=== PATIENT | female | born 1975 | race Caucasian/White ===

== ENCOUNTER 2017-11-05 08:44 | Emergency (ER) | payer MEDICARE, MEDICAID ==
[2017-11-05] MEDS ORDERED: Ketorolac INJ* 30 MG/ML 1 ML VIAL IV PUSH ONE (09:00)
[2017-11-05] MEDS ORDERED: NS 0.9% 1000 ML* 1,000 ML IV ONE (09:00)
[2017-11-05 09:44] LABS: Hematocrit 27 % (35-47); Hemoglobin 8.7 g/dl (12.0-16.0); Mean Corpuscular HGB Conc 32 g/dl (31-36); Mean Corpuscular Hemoglobin 23 pg (27-31); Mean Corpuscular Volume 72 fL (80-97); Mean Platelet Volume 7.8 um3 (7.4-10.4); Platelet Count 250 10^3/ul (150-450); Red Blood Count 3.81 10^6/ul (4.0-5.4); Red Cell Distribution Width 20 % (10.5-15); White Blood Count 12.9 10^3/ul (3.5-10.8)
[2017-11-05 09:57] LABS: INR 1.04 (0.77-1.02)
--- NOTE | 2017-11-05 09:58 | RAD ---
INDICATION: Fever COMPARISON: December 19, 2002 TECHNIQUE: PA and lateral dual-energy views were obtained. FINDINGS: Bones/Soft Tissues: There are no acute bony findings. Cardiomediastinal: The cardiomediastinal silhouette is normal. Lungs: There are no infiltrates. Pleura: There are no pleural effusions. Other: None IMPRESSION: NO ACTIVE DISEASE
[2017-11-05 10:05] LABS: EGFR Non-African American 170.1 (>60)
[2017-11-05] MEDS ORDERED: Vancomycin(*) 1,500 MG in NS 0.9% 250 ML* 250 ML IVPB ONE (10:12)
[2017-11-05 10:14] LABS: ABS Basophils 0.1 10^3/ul (0-0.2); ABS Eosinophils 0.1 10^3/ul (0-0.6); ABS Lymphocytes 1.3 10^3/ul (1.0-4.8); ABS Neutrophils 9.5 10^3/ul (1.5-7.7); ABS Nucleated RBC 0 10^3/ul; Eosinophil % 0.7 % (0-6); Lymphocyte % 9.7 % (25-47); Nucleated Red Blood Cells % 0.2
[2017-11-05] MEDS ORDERED: Levofloxacin 750 MG IVPREMIX(* 750 MG/150 ML BAG IVPB ONE (10:14)
[2017-11-05] MEDS ORDERED: metroNIDAZOLE IV 500 MG/100ML* 500 MG/100 ML BAG IVPB ONE (10:17)
[2017-11-05] MEDS ORDERED: Iodixanol* (CONTRAST) 320 MG/ML 100 ML SDV IV ONE (10:27)
--- NOTE | 2017-11-05 11:43 | RAD ---
INDICATION: Red, hot, swollen legs. Fever. Recent surgery. COMPARISON: No relevant prior exams available on the [facility] PACS for comparison. TECHNIQUE: White scale, color Doppler, and spectral analysis of the deep veins of the BILATERAL lower extremities. Vessel compression, phasicity, and augmentation assessed. REPORT: The RIGHT common femoral, great saphenous, profunda femoral, femoral, popliteal, peroneal, and posterior tibial veins are patent. The LEFT common femoral, great saphenous, profunda femoral, femoral, popliteal, peroneal, and posterior tibial veins are patent. IMPRESSION: No evidence for RIGHT or LEFT lower extremity DVT.
[2017-11-05] MEDS ORDERED: Lidocaine 2% EPI 1:200000 MPF*10-20 ML VIAL ONE (12:18)
--- NOTE | 2017-11-05 12:28 | RAD ---
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 COMPARISON: August 20, 2017 TECHNIQUE: Multidetector CT images were obtained from the lung bases to the ischial tuberosities with 124 mL Visipaque 320 IV and oral contrast. Multiplanar reformation. REPORT: Unremarkable visualized inferior thorax. 20 cm cephalocaudal liver. No focal liver lesions evident. No CT abnormality of the gallbladder, pancreas, spleen. No CT abnormality of the upper GI. Upper normal diameter of the small bowel loops. While the appendix is not discretely visualized, there is no inflammatory change in the right lower quadrant or region of the tip of the cecum to suggest presence of an acute inflammatory process. Markedly redundant colon without acute abnormality. Negative for ascites, free air, hernias. Normal RIGHT adrenal gland. Post resection of the LEFT adrenal gland. Negative for significant inflammatory change or hematoma at the LEFT adrenal resection bed. Symmetric nephrograms and pyelograms. Bilateral nephrolithiasis with 0.6 cm bilateral lower pole calyceal stones. Negative for hydronephrosis. Unremarkable nondilated ureters. Largely decompressed urinary bladder limiting assessment without suspicious finding. Unremarkable anteverted uterus. 2.2 cm water density cyst of the RIGHT ovary consistent with a follicular cyst. Unremarkable LEFT adnexal region. Negative for lymphadenopathy. Normal diameter abdominal aorta and iliac arteries. Physiologic distention of the IVC. Along the LEFT retroperitoneal surgical tract within the subcutaneous tissue plane extending into the lateral flank skeletal musculature there is a 5.6 cm AP by 5.4 cm transverse by 7.1 cm cephalocaudal loculated fluid collection with irregular mildly enhancing wall and surrounding foci of soft tissue gas. Extensive surrounding soft tissue edema. IMPRESSION: 1. Along the LEFT retroperitoneal surgical tract within the subcutaneous tissue plane extending into the lateral flank skeletal musculature there is a 5.6 cm AP by 5.4 cm transverse by 7.1 cm cephalocaudal loculated fluid collection with irregular mildly enhancing wall and surrounding foci of soft tissue gas. Extensive surrounding soft tissue edema. The differential includes postoperative hematoma, seroma, or abscess. Correlate with clinical assessment. 2. No suspicious finding at the immediate LEFT adrenal gland resection bed. 3. Nephrolithiasis without hydronephrosis. 4. Negative for ascites or free air.
--- NOTE | 2017-11-05 13:21 | ED ---
Damir Alba Stephanie, scribed for Osvaldo Mahajan MD on 11/05/17 at 1015 . HPI Febrile Illness - HPI Summary HPI Summary: The pt is a 42 y/o F presenting to the ED with c/o fever (101 F) that began last night. Symptoms include redness over an incision site in the abd. She denies SOB, LE pain, cough and abd pain. 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 The pt had her surgery at [facility]. The pt reports taking Percocet last night. - History of Current Complaint Chief Complaint: EDFever Time Seen by Provider: 11/05/17 08:58 Hx Obtained From: Patient, Family/Eviscerator - Mother Onset/Duration: Started Hours Ago, Still Present Timing: Constant Current Severity: Mild Pain Intensity: 4 Pain Scale Used: 0-10 Numeric Aggravating Factors: Nothing Alleviating Factors: Nothing Associated Signs and Symptoms: Other: - redness over an incision site in the abd - Allergy/Home Medications Allergies/Adverse Reactions: Allergies Allergy/AdvReac Type Severity Reaction Status Date / Time adhesive tape Allergy Unknown Verified 11/05/17 08:46 Reaction Details Cephalosporins Allergy Unknown Verified 11/05/17 08:46 Reaction Details Penicillins Allergy Rash Verified 11/05/17 08:46 Home Medications: Home Medications Atorvastatin* [Lipitor*] 20 mg PO DAILY 11/05/17 [History Confirmed 11/05/17] Levothyroxine TAB* [Synthroid TAB*] 137 mcg PO DAILY 11/05/17 [History Confirmed 11/05/17] Losartan TAB* [Cozaar TAB*] 100 mg PO DAILY 11/05/17 [History Confirmed 11/05/17 ] Metoprolol Succinate XL TAB* [Toprol XL TAB*] 100 mg PO BID 11/05/17 [History Confirmed 11/05/17] Phenytoin CAP(*) [Dilantin CAP(*)] 200 mg PO BID 11/05/17 [History Confirmed 07/25] metFORMIN* [Glucophage 1000 MG TAB *] 1,000 mg PO BID 11/05/17 [History Confirmed 11/05/17] oxyCODONE/Acetamin 5/325 MG* [Percocet 5/325 TAB*] 1 tab PO Q6H PRN 11/05/17 [ History Confirmed 11/05/17] PMH/Surg Hx/FS Hx/Imm Hx Endocrine/Hematology History: Reports: Hx Diabetes Denies: Hx Systemic Lupus Erythematosus Cardiovascular History: Reports: Hx Hypertension Denies: Hx Congestive Heart Failure History: Reports: Hx Kidney Stones - LITHO 10-12 YEARS AGO, Denies: Hx Dialysis, Hx Renal Disease Musculoskeletal History: Denies: Hx Rheumatoid Arthritis - Cancer History Hx Chemotherapy: No - Surgical History Surgery Procedure, Year, and Place: kidney stone blasting, right hip surgery, heel lengthing right leg Infectious Disease History: No Infectious Disease History: Denies: Traveled Outside the [place] in Last 30 Days - Family History Known Family History: Negative: Renal Disease - Social History Occupation: Unemployed Lives: Alone Alcohol Use: None Hx Substance Use: No Substance Use Type: Reports: None Hx Tobacco Use: No Smoking Status (MU): Never Smoked Tobacco Have You Smoked in the Last Year: No Review of Systems Positive: Fever Negative: Shortness Of Breath, Cough Negative: Abdominal Pain Musculoskeletal: Negative - LE pain Positive: Other - redness over an incision site in the abd All Other Systems Reviewed And Are Negative: Yes Physical Exam - Summary Physical Exam Summary: Appearance: Mildly ill-appearing, mild distress Skin: warm, dry, port site incision on L flank with surrounding erythema and induration of wound, cellulitic in appearance, erythema and warmth symmetrically on both legs Head/face: normal Eyes: EOMI, YAJAIRA ENT: normal Neck: supple, non-tender Respiratory: CTA, breath sounds present Cardiovascular: tachycardic, heart regular, pulses symmetrical Abdomen: non-tender, soft, intertrigo in abd area Bowel Sounds: present Musculoskeletal: strength/ROM intact, Pitting edema LE bilaterally, congenital deformity of R hand Neuro: normal, sensory motor intact, A&Ox3 Triage Information Reviewed: Yes Vital Signs On Initial Exam: Initial Vitals Temp Pulse Resp BP Pulse Ox 102.2 F 105 18 150/74 99 11/05/17 08:47 11/05/17 08:47 11/05/17 08:47 11/05/17 08:47 11/05/17 08:47 Vital Signs Reviewed: Yes Procedures - Procedure Summary Procedure Summary: 40 cc of belle pus removed. Used 1 cc 2% lido with epi in L flank. Diagnostics - Vital Signs Vital Signs Temp Pulse Resp BP Pulse Ox 11/05/17 09:35 107 21 119/79 97 11/05/17 09:34 18 11/05/17 08:47 102.2 F 105 18 150/74 99 - Laboratory Lab Results: Lab Results 11/05/17 11/05/17 11/05/17 Range/Units 09:25 09:25 09:25 WBC 12.9 H (3.5-10.8) 10^3/ul RBC 3.81 L (4.0-5.4) 10^6/ul Hgb 8.7 L (12.0-16.0) g/dl Hct 27 L (35-47) % MCV 72 L (80-97) fL MCH 23 L (27-31) pg MCHC 32 (31-36) g/dl RDW 20 H (10.5-15) % Plt Count 250 (150-450) 10^3/ul MPV 7.8 (7.4-10.4) um3 Neut % (Auto) Pending Lymph % (Auto) Pending [place] % (Auto) Pending Eos % (Auto) Pending Baso % (Auto) Pending Absolute Neuts (auto) Pending Absolute Lymphs (auto) Pending Absolute Monos (auto) Pending Absolute Eos (auto) Pending Absolute Basos (auto) Pending Absolute Nucleated RBC Pending Nucleated RBC % Pending INR (Anticoag Therapy) 1.04 H (0.77-1.02) APTT 27.0 (26.0-36.3) seconds Sodium 132 L (139-145) mmol/L Potassium 3.2 L (3.5-5.0) mmol/L Chloride 94 L (101-111) mmol/L Carbon Dioxide 27 (22-32) mmol/L Anion Gap 11 (2-11) mmol/L BUN Pending Creatinine Pending Est GFR ( Amer) Pending Est GFR (Non-Af Amer) Pending BUN/Creatinine Ratio Pending Glucose Pending Calcium 8.8 (8.6-10.3) mg/dL Total Bilirubin 0.30 (0.2-1.0) mg/dL AST Pending ALT Pending Alkaline Phosphatase Pending Troponin I Pending Total Protein Pending Albumin 3.6 (3.2-5.2) g/dL Globulin Pending Albumin/Globulin Ratio Pending Influenza A (Rapid) (Negative) Influenza B (Rapid) (Negative) 11/05/17 Range/Units 09:43 WBC (3.5-10.8) 10^3/ul RBC (4.0-5.4) 10^6/ul Hgb (12.0-16.0) g/dl Hct (35-47) % MCV (80-97) fL MCH (27-31) pg MCHC (31-36) g/dl RDW (10.5-15) % Plt Count (150-450) 10^3/ul MPV (7.4-10.4) um3 Neut % (Auto) Lymph % (Auto) [place] % (Auto) Eos % (Auto) Baso % (Auto) Absolute Neuts (auto) Absolute Lymphs (auto) Absolute Monos (auto) Absolute Eos (auto) Absolute Basos (auto) Absolute Nucleated RBC Nucleated RBC % INR (Anticoag Therapy) (0.77-1.02) APTT (26.0-36.3) seconds Sodium (139-145) mmol/L Potassium (3.5-5.0) mmol/L Chloride (101-111) mmol/L Carbon Dioxide (22-32) mmol/L Anion Gap (2-11) mmol/L BUN Creatinine Est GFR ( Amer) Est GFR (Non-Af Amer) BUN/Creatinine Ratio Glucose Calcium (8.6-10.3) mg/dL Total Bilirubin (0.2-1.0) mg/dL AST ALT Alkaline Phosphatase Troponin I Total Protein Albumin (3.2-5.2) g/dL Globulin Albumin/Globulin Ratio Influenza A (Rapid) Negative (Negative) Influenza B (Rapid) Negative (Negative) Result Diagrams: 11/05/17 09:25 11/05/17 09:25 Lab Statement: Any lab studies that have been ordered have been reviewed, and results considered in the medical decision making process. - Radiology CXR Xray Interpretation: No Acute Changes Radiology Interpretation Completed By: Radiologist - NO ACTIVE DISEASE. ED physician has reviewed this report. - CT Abdomen/Pelvis CT Interpretation: No Acute Changes CT Interpretation Completed By: Radiologist - 1. Along the LEFT retroperitoneal surgical tract within the subcutaneous tissue plane extending into the lateral flank skeletal musculature there is a 5.6 cm AP by 5.4 cm transverse by 7.1 cm cephalocaudal loculated fluid collection with irregular mildly enhancing wall and surrounding foci of soft tissue gas. Extensive surrounding soft tissue edema. The differential includes postoperative hematoma, seroma, or abscess. Correlate with clinical assessment. 2. No suspicious finding at the immediate LEFT adrenal gland resection bed. 3. Nephrolithiasis without hydronephrosis. 4. Negative for ascites or free air. ED physician has reviewed this report. - EKG 09:10 Cardiac Rate: Tachycardia EKG Rhythm: Sinus Tachycardia - [address] Segment: Non-Specific EKG Interpretation: Nml axis, RBBB Re-Evaluation - Re-Evaluation First Eval Re-Evaluation Time: 13:05 Change: Unchanged - ED physician has discussed plan of discharge with the pt. Course/Dx - Course Course Of Treatment: Patient with fever and left flank induration, redness around surgical sites. Bedside ultrasound performed by me confirmed urea of fluid under these wounds. I performed needle aspiration and suctioned out 40 cc of belle pus. Surgery was then contacted. At 10:11, ED physician discussed care of pt with Dr. Banerjee' nurse. Surgery saw the pt and performed a incision and drainage procedure at bedside. She had received triple antibiotics through the IV here. The pt will be discharged with surgery clinic follow-up. They wish her to be placed on doxycycline which I have written for. - Febrile Illness Differential Diagnoses: Abd. Infection, Abscess, Bacteremia, Cellulitis - Diagnoses Provider Diagnoses: Postoperative abscess Discharge - Sign-Out/Discharge Documenting (check all that apply): Discharge/Admit/Transfer - Discharge - Discharge Plan Condition: Stable Disposition: HOME Prescriptions: DOXYcycline CAP(*) [DOXYcycline 100MG CAP(*)] 100 mg PO BID #20 cap Patient Education Materials: Abscess (ED) Referrals: Alverto Banerjee MD [Medical Doctor] - Maria Ines Mitchell MD [Primary Care Provider] - Additional Instructions: Call today to schedule follow-up appointment with the surgeon. Return with increased drainage, pain or redness from the wound, fever, worse or other concerns. - Billing Disposition and Condition Condition: STABLE Disposition: HOME The documentation as recorded by the Damir keating Stephanie accurately reflects the service I personally performed and the decisions made by , Osvaldo Mahajan MD.
--- NOTE | 2017-11-05 14:35 | CONS ---
CC: Dr. Maria Ines Mitchell, [facility]; Dr. Jimbo Rojas, [facility]. * SURGICAL CONSULT AND PROCEDURE NOTE: DATE OF CONSULT AND PROCEDURE: 11/05/17 - EMERGENCY DEPT ATTENDING SURGEON: Dr. Alverto Banerjee. 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 Jimbo Rojas. She had an overnight stay, but an otherwise uncomplicated perioperative course. Beginning about 4 to 5 days ago, there was some redness noted around the flank incision. This gradually increased and then her mother noted an associated fever initially of 101 and then up to 103 this morning. The patient denies any pain in the area and in fact she otherwise feels well apart from the fever. She has had no GI or symptoms. She has been using only ibuprofen for pain with occasional, but not daily, Percocet. There has been no spontaneous drainage from the wound. She was seen initially by the ED physician, Dr. Mahajan, who did a bedside ultrasound, which showed a collection. He aspirated the collection for approximately 40 cc of turbid-appearing fluid and this was submitted for culture. Initial Gram stain showed 4+ neutrophils, 3+ gram- negative coccobacilli, and 3+ gram-positive cocci. MRSA and Staph aureus were negative by PCR. PAST MEDICAL HISTORY: Type 2 diabetes; hypertension; hypothyroidism, on replacement; seizure disorder; hypercholesterolemia; cerebral palsy affecting primarily the right side, though she is fully ambulatory without assist; nephrolithiasis. PAST SURGICAL HISTORY: Previous surgeries include right hip surgery at age 7, right heel surgery for cord lengthening x2, and ESWL for nephrolithiasis. Laparoscopic-assisted resection of left adrenal mass (the patient and her mother are still unsure of the final pathology). MEDICATIONS: Usual medications include: 1. Levothyroxine. 2. Metformin. 3. Dilantin. 4. Metoprolol. 5. Hydrochlorothiazide/losartan. 6. Sertraline. 7. Atorvastatin. 8. Ibuprofen p.r.n. 9. Percocet p.r.n. 10. Vitamin D 50,000 units once weekly. DRUG ALLERGIES: PENICILLIN (rash), CEPHALOSPORIN, unknown reaction per her record. FAMILY HISTORY: Noncontributory in terms of anesthesia problems, bleeding or clotting disorders. SOCIAL HISTORY: The patient lives in her own apartment. She is employed at the [employer]. She denies use of tobacco or alcohol. REVIEW OF SYSTEMS: Negative review of systems other than those areas as noted above. Specifically again, no GI symptoms, nausea, vomiting, or change in stools. She did have colonoscopy a couple of years ago that showed a large polyp that was removed colonoscopically and was benign by pathology. She has had 2 subsequent colonoscopies, which have been negative. No dysuria, hematuria , or increased frequency. PHYSICAL EXAM: Height 5 feet, weight 218 pounds, BMI 42.6, temperature 102.2, blood pressure ranging from 119 to 161 over 74 to 90, pulse ranging from 100 to 108, respirations ranging from 16 to 30. General: Well-nourished, morbidly obese female, in no acute distress, but anxious and teary-eyed at intervals. She denies any pain or discomfort. HEENT: Remarkable only for dry mucous membranes. Heart: Regular rate and rhythm. Mildly tachycardic. No murmur appreciated. Lungs: Clear to auscultation. No rales or wheezes. Abdomen: Obese, soft, nontender to palpation. There are at least 2 or 3 laparoscopic port sites as well as a larger incision, all in the left flank. The margin of the mild erythema is outlined by marker. This seems to be concentrated at the larger incision. DIAGNOSTIC STUDIES/LAB DATA: WBC 12.9; Hgb 8.7 (consistent w/ previous); K+ 3.2 ; glucose 203; lactate 3.2. Per the ED physician, ultrasound confirmed a collection. CT was also obtained confirming a 5.6 x 5.4 x 7.1 cm loculated fluid collection with foci of gas. No intraabdominal abnormalities other than nephrolithiasis without hydronephrosis. There is no evidence of ascites or free air and no suspicious findings at the area of the surgery in the left adrenal gland. IMPRESSION: Based on these findings impression is that of wound infection of the left flank. PLAN: I will defer antibiotic therapy to Dr. Mahajan and will arrange an office followup in our office on , 11/07/17. She does have a scheduled surgical followup with Dr. Rojas on 11/15/17. PROCEDURE: Incision and drainage, left flank wound. After obtaining consult and explaining the procedure, a time out was performed. A combination of 1% plain and 2% with epinephrine lidocaine was injected in and around the larger left flank incision for a total of approximately 10 cc. The incision was opened with an 11-blade with drainage of copious cloudy foul- smelling drainage. The wound was explored both with hemostat and gloved finger and any loculations were broken up. The wound was irrigated copiously with normal saline until clear. A saline moistened 4x4 gauze pad was used to pack the wound and then additional gauze pads and ABD were applied for cover dressing. The patient tolerated the procedure well. ALLY LONDON [id number]/[facility] #: [id number] FILIBERTO
[2017-11-05 15:00] VITALS: BP 119/75
--- NOTE | 2017-11-07 07:11 | PN ---
Progress Note - Progress Note Date of Service: 11/05/17 Note: Patient was placed on doxycycline prior to discharge per surgery Wound culture grew Enterobacter Clocae We will await sensitivities
--- NOTE | 2017-11-08 10:45 | ED ---
Progress - Progress Note Progress Note: Final wound culture sensitivities reveal doxycycline is most likely effective against organism. No change in treatment at this time. Re-Evaluation - Re-Evaluation First Eval Re-Evaluation Time: 13:05 Change: Unchanged - ED physician has discussed plan of discharge with the pt. Course/Dx - Course Course Of Treatment: Patient with fever and left flank induration, redness around surgical sites. Bedside ultrasound performed by me confirmed urea of fluid under these wounds. I performed needle aspiration and suctioned out 40 cc of belle pus. Surgery was then contacted. At 10:11, ED physician discussed care of pt with Dr. Banerjee' nurse. Surgery saw the pt and performed a incision and drainage procedure at bedside. She had received triple antibiotics through the IV here. The pt will be discharged with surgery clinic follow-up. They wish her to be placed on doxycycline which I have written for. - Diagnoses Provider Diagnoses: Postoperative abscess Discharge - Sign-Out/Discharge Documenting (check all that apply): Post-Discharge Follow Up - Discharge Plan Condition: Stable Disposition: HOME Prescriptions: DOXYcycline CAP(*) [DOXYcycline 100MG CAP(*)] 100 mg PO BID #20 cap Patient Education Materials: Abscess (ED) Referrals: Alverto Banerjee MD [Medical Doctor] - Maria Ines Mitchell MD [Primary Care Provider] - Additional Instructions: Call today to schedule follow-up appointment with the surgeon. Return with increased drainage, pain or redness from the wound, fever, worse or other concerns. - Billing Disposition and Condition Condition: STABLE Disposition: HOME
== END 2017-11-05 15:00 | disposition home or self-care (01) ==
LOC: ED 08:44
DX: T81.4XXA Infection following a procedure, initial encounter (principal); L02.91 Cutaneous abscess, unspecified
CPT/HCPCS: 36415; 71046; 74177; 80053; 83605; 84484; 85025; 85610; 85730; 87040; 87070; 87076; 87077; 87186; 87205; 87502; 87640; 87641; 93970; 96365; 96375; 99284; J1885; J3370; J3490; Q9967

== ENCOUNTER 2018-03-01 17:40 | Inpatient (IN) | payer MEDICARE, MEDICAID ==
[2018-03-01] MEDS ORDERED: metroNIDAZOLE IV 500 MG/100ML* 500 MG/100 ML BAG IVPB ONE (18:15)
[2018-03-01] MEDS ORDERED: Levofloxacin 750 MG IVPREMIX(* 750 MG/150 ML BAG IVPB ONE (18:15)
[2018-03-01] MEDS ORDERED: methylPREDNISolone 125 MG* 2 ML VIAL IV ONE (18:41)
[2018-03-01 18:48] LABS: ABS Basophils 0 10^3/ul (0-0.2); ABS Eosinophils 0.4 10^3/ul (0-0.6); ABS Lymphocytes 1.8 10^3/ul (1.0-4.8); ABS Monocytes 1.5 10^3/ul (0-0.8); ABS Neutrophils 15.8 10^3/ul (1.5-7.7); ABS Nucleated RBC 0 10^3/ul; Eosinophil % 1.9 % (0-6); Hematocrit 40 % (35-47); Mean Corpuscular HGB Conc 32 g/dl (31-36); Mean Corpuscular Hemoglobin 25 pg (27-31); Mean Corpuscular Volume 77 fL (80-97); Mean Platelet Volume 7.5 um3 (7.4-10.4); Nucleated Red Blood Cells % 0; Platelet Count 415 10^3/ul (150-450); Red Blood Count 5.21 10^6/ul (4.00-5.40); Red Cell Distribution Width 19 % (10.5-15); White Blood Count 19.4 10^3/ul (3.5-10.8)
[2018-03-01] MEDS ORDERED: Phenytoin IV(*) 50 MG/ML 2 ML VIAL (100 MG) IVPB ONE (19:00)
[2018-03-01 19:08] LABS: EGFR Non-African American 101.3 (>60)
[2018-03-01] MEDS ORDERED: Aspirin 81 mg CHEW TAB* 81 MG TAB.CHEW PO ONE (19:15)
[2018-03-01] MEDS ORDERED: NS 0.9% 1000 ML* 1,000 ML IV ONE ×2 (19:15→23:45)
[2018-03-01] MEDS ORDERED: Propofol* 100 ML ONE (19:32)
[2018-03-01] MEDS ORDERED: Midazolam* 1 MG/ML 10 ML VIAL (10 MG) ONE (19:38)
[2018-03-01] MEDS ORDERED: Ondansetron INJ* 2 MG/ML VIAL ONE (19:41)
[2018-03-01] MEDS ORDERED: Etomidate* 2 MG/ML 20 ML VIAL (40 MG) ONE (19:43)
[2018-03-01] MEDS ORDERED: Acetaminophen SUPP* 650 MG SUPP PR PRN (19:47)
[2018-03-01] MEDS ORDERED: Ondansetron INJ* 2 MG/ML VIAL IV PRN (19:49)
[2018-03-01] MEDS ORDERED: Pantoprazole IV* 40 MG IV PRN (19:49)
--- NOTE | 2018-03-01 19:51 | HP ---
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 She was at [place] with staff from the [facility] when she suddenly seized and EMS was called. Upon arrival to the ED she was in respiratory distress from apparent aspiration and was placed on BiPap until decision to intubate was made. Between removing BiPap and being intubated she again vomited a moderate amount of pink melted ice cream and gastric fluid. Post-intubation her blood pressure dropped with the propofol required to allow comfort on the ventilator and so a central line was placed and norepinephrine GTT initiated. Her phenytoin level was low at 7.7 and 500mg fosphenytoin was given to bring her to the therapeutic range. PMedHx cerebral palsy affecting primarily her R side seizure disorder DM2 HTN HLD hypothyroidism urolithiasis anemia Ambulatory Orders meformin 1g BID levothyroxine 137mcg daily phenytoin 200mg BID dilantin 30mg BID metoprolol IR 100mg BID HCTZ 25mg QAM losartan 100mg QAM sertraline 100mg daily atorvastatin 20mg QPM Allergies adhesive tape Allergy (Verified 11/05/17 08:46) Unknown Reaction Details Cephalosporins Allergy (Verified 11/05/17 08:46) Unknown Reaction Details Penicillins Allergy (Verified 11/05/17 08:46) Rash PSurgHx unilateral adrenectomy 10/2017 for 'fatty tumor' R ankle tendon surgery x2 R hip surgery SocHx: no tobacco, alcohol, or recreational drugs; lives alone with assistance from the [place] multiple times a week, ambulated unassisted; on SSI disability; full code status FamHx: Mother alive with HTN & HLD. Father alive, estranged, known to have CAD/ HI. ROS: as above, otherwise reviewed and all were negative vitals: Vital Signs Temp 36.8 C 03/01/18 20:45 Pulse 91 03/01/18 20:45 Resp 29 03/01/18 20:45 BP 107/78 03/01/18 20:45 Pulse Ox 87 03/01/18 20:45 Intake & Output 02/28/18 03/01/18 03/01/18 23:59 11:59 23:59 Weight 79.379 kg Constitutional: NAD, normally developed, obese white female HEENM: atraumatic; sclera/conjunctiva: anicteric/clear; blephara: normal; hearing: unable to assess; oropharynx: clear, mucosa moist Neck: soft tissue: non-tender; thyroid: normal Pulmonary: intubated, markedly coarse bilaterally, fair aeration, no accessory muscle use CV: RR/RR, normal S1S2, no carotid bruit, no jugular venous distention, 2+ B DP/ PT, no edema Abdominal: soft, non-distended, non-tender, no rebound/guarding/rigidity, normoactive bowel sounds, no hepatosplenomegaly or masses, no costovertebral angle tenderness Musculoskeletal: general: grossly intact, non-tender; gait: currently non- ambulatory Integumental: normal appearance and texture of exposed skin Psychiatric orientation: intubated & sedated on propofol affect: sedated mood: acquiescent eye contact: absent content: absent responses: withdraws to tactile stimulation insight: unable to assess Testing: Lab Results 03/01/18 03/01/18 03/01/18 Range/Units 18:32 18:32 18:32 WBC 19.4 H (3.5-10.8) 10^3/ul RBC 5.21 (4.00-5.40) 10^6/ul Hgb 13.0 (12.0-16.0) g/dl Hct 40 (35-47) % MCV 77 L (80-97) fL MCH 25 L (27-31) pg MCHC 32 (31-36) g/dl RDW 19 H (10.5-15) % Plt Count 415 (150-450) 10^3/ul MPV 7.5 (7.4-10.4) um3 Neut % (Auto) 81.4 (38-83) % Lymph % (Auto) 9.0 L (25-47) % [place] % (Auto) 7.5 H (0-7) % Eos % (Auto) 1.9 (0-6) % Baso % (Auto) 0.2 (0-2) % Absolute Neuts (auto) 15.8 H (1.5-7.7) 10^3/ul Absolute Lymphs (auto) 1.8 (1.0-4.8) 10^3/ul Absolute Monos (auto) 1.5 H (0-0.8) 10^3/ul Absolute Eos (auto) 0.4 (0-0.6) 10^3/ul Absolute Basos (auto) 0 (0-0.2) 10^3/ul Absolute Nucleated RBC 0 10^3/ul Nucleated RBC % 0 INR (Anticoag Therapy) (0.77-1.02) APTT (26.0-36.3) seconds Patient Temperature ABG pH (7.35-7.45) ABG pH (Temp Correct) ABG pCO2 (35-45) mmHg ABG pCO2 (Temp Corrct ABG pO2 (80-100) mmHg ABG pO2 (Temp Correct ABG HCO3 (19-31) mmol/L ABG O2 Saturation (95-98) % ABG Base Excess (-2.0-2.0) Respiration Rate O2 Delivery Device Ventilator Type Vent Mode FiO2 Inspiratory Time PEEP Pressure Support Pressure Control EPAP IPAP BiPAP Sodium 131 L (135-145) mmol/L Potassium 3.6 (3.5-5.0) mmol/L Chloride 94 L (101-111) mmol/L Carbon Dioxide 17 L (22-32) mmol/L Anion Gap 20 H (2-11) mmol/L BUN 9 (6-24) mg/dL Creatinine 0.64 (0.51-0.95) mg/dL Est GFR ( Amer) 122.5 (>60) Est GFR (Non-Af Amer) 101.3 (>60) BUN/Creatinine Ratio 14.1 (8-20) Glucose 361 H (70-100) mg/dL Lactic Acid 9.2 H* (0.5-2.0) mmol/L Calcium 9.4 (8.6-10.3) mg/dL Total Bilirubin 0.20 (0.2-1.0) mg/dL AST 14 (13-39) U/L ALT 11 (7-52) U/L Alkaline Phosphatase 142 H (34-104) U/L Total Creatine Kinase 45 (10-223) U/L CK-MB (CK-2) 2.1 (0.6-6.3) ng/mL Troponin I 0.19 H* (<0.04) ng/mL C-Reactive Protein 55.26 H (<8.01) mg/L Total Protein 7.3 (6.4-8.9) g/dL Albumin 4.1 (3.2-5.2) g/dL Globulin 3.2 (2-4) g/dL Albumin/Globulin Ratio 1.3 (1-3) Phenytoin 7.7 L (10-20) mcg/mL 03/01/18 03/01/18 03/01/18 Range/Units 18:35 20:30 20:37 WBC (3.5-10.8) 10^3/ul RBC (4.00-5.40) 10^6/ul Hgb (12.0-16.0) g/dl Hct (35-47) % MCV (80-97) fL MCH (27-31) pg MCHC (31-36) g/dl RDW (10.5-15) % Plt Count (150-450) 10^3/ul MPV (7.4-10.4) um3 Neut % (Auto) (38-83) % Lymph % (Auto) (25-47) % [place] % (Auto) (0-7) % Eos % (Auto) (0-6) % Baso % (Auto) (0-2) % Absolute Neuts (auto) (1.5-7.7) 10^3/ul Absolute Lymphs (auto) (1.0-4.8) 10^3/ul Absolute Monos (auto) (0-0.8) 10^3/ul Absolute Eos (auto) (0-0.6) 10^3/ul Absolute Basos (auto) (0-0.2) 10^3/ul Absolute Nucleated RBC 10^3/ul Nucleated RBC % INR (Anticoag Therapy) 0.91 (0.77-1.02) APTT 25.7 L (26.0-36.3) seconds Patient Temperature Not Reportable ABG pH 7.32 L 7.31 L (7.35-7.45) ABG pH (Temp Correct) Not Reportable ABG pCO2 35 45 (35-45) mmHg ABG pCO2 (Temp Corrct Not Reportable ABG pO2 67 L 61 L (80-100) mmHg ABG pO2 (Temp Correct Not Reportable ABG HCO3 19.1 21.9 (19-31) mmol/L ABG O2 Saturation 93.7 L 90.9 L (95-98) % ABG Base Excess -7.3 L -3.6 L (-2.0-2.0) Respiration Rate 14 O2 Delivery Device ventilator Ventilator Type 450 Vent Mode apv/cmv FiO2 100 Inspiratory Time 1.0 PEEP 5 Pressure Support Not Reportable Pressure Control Not Reportable EPAP Not Reportable IPAP Not Reportable BiPAP Not Reportable Sodium (135-145) mmol/L Potassium (3.5-5.0) mmol/L Chloride (101-111) mmol/L Carbon Dioxide (22-32) mmol/L Anion Gap (2-11) mmol/L BUN (6-24) mg/dL Creatinine (0.51-0.95) mg/dL Est GFR ( Amer) (>60) Est GFR (Non-Af Amer) (>60) BUN/Creatinine Ratio (8-20) Glucose (70-100) mg/dL Lactic Acid (0.5-2.0) mmol/L Calcium (8.6-10.3) mg/dL Total Bilirubin (0.2-1.0) mg/dL AST (13-39) U/L ALT (7-52) U/L Alkaline Phosphatase (34-104) U/L Total Creatine Kinase (10-223) U/L CK-MB (CK-2) (0.6-6.3) ng/mL Troponin I (<0.04) ng/mL C-Reactive Protein (<8.01) mg/L Total Protein (6.4-8.9) g/dL Albumin (3.2-5.2) g/dL Globulin (2-4) g/dL Albumin/Globulin Ratio (1-3) Phenytoin (10-20) mcg/mL ECG, personally reviewed: NSR rate 87, mild ST depression V4-6, diffuse T-wave flattening; no comparison CXR, personally reviewed: bibasilar infiltrates and diffuse changes concerning for early ARDS CXR, post-intubation, personally reviewed: ET & OG in good position Impression: 43F HX seizure disorder, cerebral palsy affecting the R side, DM2, HTN, HLD, hypothyroidism, and unilateral adrenectomy for reportedly benign ' fatty tumor' in October of this year presenting with seizure and aspiration pneumonitis with associated acute hypoxic respiratory failure, lactic acidosis, & demand troponin leak Neurologic seizure w/ HX seizure disorder : boost phenytoin level via 500mg IV fosphenytoin, recheck in AM : seizure precautions Cardiovascular elevated troponin, suspect demand leak : telemetry & trend : hypotension w/ administration of propofol, start norepinephrine GTT Pulmonary acute hypoxic respiratory failure 2nd acute large volume aspiration & concern for early ARDS : mechanical ventilation; early on did oxygenation was better on CMV compared to APRV : CPT Q4H & suctioning PRN Infectious Disease SIRS criteria met, although not likely to be 2nd infectious burden this early : 30mg/kg IVF bolus NS then LR at 125cc/hr : empiric levofloxacin & metronidazole : blood & sputum CXs Gastroenterology : IV pantoprazole for GI prophylaxis Renal : no current issues, but certainly concern for risk : IVFs & trend : valentin to prevent skin breakdown & accurate monitoring of fluid status Hematologic HX anemia w/o acute issue Endocrine hypothyroidism : continue levothyroxine IV at 1/2 PO dose Lines peripheral IV x2 L subclavian central line ET valentin Admission Rational: inpatient for critical patient whom without the above interventions is at very high risk of severe adverse short-term outcome; inappropriate for outpatient setting DVTp: SCDs & heparin SQ Code Status: full HCP: mother Critical Care time: 155minutes with >50% spent at the bedside obtaining a history from mother & uncle, performing the examination, advising of diagnosis & treatment options along with risks/benefits/reasoning; remainder spent discussing with ER MD & slag wheeler on-call, reviewing labs and radiology exams , documentation
[2018-03-01] MEDS ORDERED: NS 0.9% 1000 ML* 1,000 ML IV SCH (20:00)
--- NOTE | 2018-03-01 20:44 | ED ---
Progress - Progress Note Progress Note: PATIENT WITH SEIZURE AND ASPIRATION PNEUMONIA REQUIRING INTUBATION. DISCUSSED WITH THE HOSPITALIST, DR MOSELEY. - EKG/XRAY/CT Xray Comments: POST INTUBATION AP CXR SHOWS ET TUBE IN PLACE 2CM ABOVE THE SHAHEEN. Course/Dx - Course Course Of Treatment: RSI WITH VERSED 5MG AND ETOMIDATE 20MG IV. DIPROVAN DRIP STARTED. INTUBATED WITH A 8 ET TUBE. CO2 BACK. BREATH SOUNDS BOTH SIDES. TUBE PLACEMENT CONFIRMED BY CXR. - Diagnoses Provider Diagnoses: Aspiration pneumonia, Hypoxia - Critical Care Time Critical Care Time: 30-74 min Discharge - Sign-Out/Discharge Documenting (check all that apply): Patient Departure All imaging exams completed and their final reports reviewed: Yes - Discharge Plan Condition: Critical Disposition: ADMITTED TO [facility] - Billing Disposition and Condition Condition: CRITICAL Disposition: Admitted to [facility]
[2018-03-01 20:55] LABS: INR 0.91 (0.77-1.02)
[2018-03-01] MEDS ORDERED: Fosphenytoin(*) 500 MG in NS 0.9% 50 ML* 50 ML IVPB ONE (21:09)
--- NOTE | 2018-03-01 21:16 | ED ---
Shortness of Breath - HPI Summary HPI Summary: Patient is a 43-year-old female presenting to the ED after a seizure with a possible aspiration pneumonia. Mother is at bedside. Patient is developmentally delayed, however is able to tell me a brief history. She states she was out to eat with her friends when her friends noticed she was having a seizure. She does not recall the events and is unsure if this was a seizure. However when she awoke she was coughing. She arrives to the ED continuing to still cough, however denies any SOB. She states she feels otherwise well and denies any fatigue. Denies hitting her head or LOC. History of seizures, last seizure was 2000 which she had aspiration pneumonia at that time, needed to be intubated and transferred to another hospital. On arrival to the ED she continues to decline with her sats in the 60s. She is currently on phenytoin 200 mg twice a day and Dilantin 30 mg twice a day. Neurologist is in [place]. - History of Current Complaint Chief Complaint: EDSeizure Time Seen by Provider: 03/01/18 17:47 Hx Obtained From: Patient Onset/Duration: Sudden Onset Timing: Constant Current Severity: Moderate Dyspnea At: Rest Aggrevating Factors: Deep Breaths Alleviating Factors: Oxygen Associated Signs & Symptoms: Cough (Productive) - Risk Factors Pulmonary Embolism: Negative Cardiac: Negative Pseudomonas: Negative - Allergy/Home Medications Allergies/Adverse Reactions: Allergies Allergy/AdvReac Type Severity Reaction Status Date / Time adhesive tape Allergy Unknown Verified 11/05/17 08:46 Reaction Details Cephalosporins Allergy Unknown Verified 11/05/17 08:46 Reaction Details Penicillins Allergy Rash Verified 11/05/17 08:46 PMH/Surg Hx/FS Hx/Imm Hx Previously Healthy: Yes Endocrine/Hematology History: Reports: Hx Diabetes Denies: Hx Systemic Lupus Erythematosus Cardiovascular History: Reports: Hx Hypertension, Other Cardiovascular Problems/ Disorders - seizures Denies: Hx Congestive Heart Failure History: Reports: Hx Kidney Stones - LITHO 10-12 YEARS AGO, Denies: Hx Dialysis, Hx Renal Disease Musculoskeletal History: Denies: Hx Rheumatoid Arthritis - Cancer History Hx Chemotherapy: No - Surgical History Surgery Procedure, Year, and Place: kidney stone blasting, right hip surgery, heel lengthing right leg - Immunization History Hx Pertussis Vaccination: No Immunizations Up to Date: Unable to Obtain/Confirm Infectious Disease History: No Infectious Disease History: Denies: Traveled Outside the [place] in Last 30 Days - Family History Known Family History: Negative: Renal Disease - Social History Occupation: Unemployed Lives: With Family Alcohol Use: None Hx Substance Use: No Substance Use Type: Reports: None Hx Tobacco Use: No Smoking Status (MU): Never Smoked Tobacco Have You Smoked in the Last Year: No Review of Systems Constitutional: Negative Negative: Fever, Chills, Fatigue, Skin Diaphoresis Negative: Palpitations, Chest Pain Positive: Shortness Of Breath, Cough Negative: Abdominal Pain, Vomiting, Diarrhea, Nausea Genitourinary: Negative Positive: no symptoms reported, see HPI Negative: Arthralgia, Myalgia Neurological: Negative Positive: Anxious All Other Systems Reviewed And Are Negative: Yes Physical Exam Triage Information Reviewed: Yes Vital Signs On Initial Exam: Initial Vitals Temp Pulse Resp BP Pulse Ox 97.4 F 111 20 134/73 72 03/01/18 17:40 03/01/18 17:40 03/01/18 17:40 03/01/18 17:40 03/01/18 17:40 Vital Signs Reviewed: Yes Appearance: Positive: Well-Appearing, Well-Nourished Skin: Positive: Warm, Skin Color Reflects Adequate Perfusion Head/Face: Positive: Normal Head/Face Inspection Eyes: Positive: EOMI, Conjunctiva Clear Neck: Positive: Supple, No Lymphadenopathy Respiratory/Lung Sounds: Positive: Rhonchi, Wheezes, Unable to speak in full sentences Cardiovascular: Positive: RRR, Pulses are Symmetrical in both Upper and Lower Extremities Bowel Sounds: Positive: Present Neurological: Positive: Sensory/Motor Intact, Alert, Oriented to Person Place, Time, Speech Normal Psychiatric: Positive: Anxious AVPU Assessment: Alert Diagnostics - Vital Signs Vital Signs Temp Pulse Resp BP Pulse Ox 03/01/18 19:19 113 114/86 94 03/01/18 19:00 112 94 03/01/18 18:49 118 132/82 93 03/01/18 18:44 111 126/89 92 03/01/18 18:40 113 29 89 03/01/18 18:00 122 58 03/01/18 17:49 122 130/93 60 03/01/18 17:40 97.4 F 111 20 134/73 72 - Laboratory Lab Results: Lab Results 08/25/18 08/25/18 08/25/18 Range/Units 18:32 18:32 18:32 WBC 19.4 H (3.5-10.8) 10^3/ul RBC 5.21 (4.00-5.40) 10^6/ul Hgb 13.0 (12.0-16.0) g/dl Hct 40 (35-47) % MCV 77 L (80-97) fL MCH 25 L (27-31) pg MCHC 32 (31-36) g/dl RDW 19 H (10.5-15) % Plt Count 415 (150-450) 10^3/ul MPV 7.5 (7.4-10.4) um3 Neut % (Auto) 81.4 (38-83) % Lymph % (Auto) 9.0 L (25-47) % [place] % (Auto) 7.5 H (0-7) % Eos % (Auto) 1.9 (0-6) % Baso % (Auto) 0.2 (0-2) % Absolute Neuts (auto) 15.8 H (1.5-7.7) 10^3/ul Absolute Lymphs (auto) 1.8 (1.0-4.8) 10^3/ul Absolute Monos (auto) 1.5 H (0-0.8) 10^3/ul Absolute Eos (auto) 0.4 (0-0.6) 10^3/ul Absolute Basos (auto) 0 (0-0.2) 10^3/ul Absolute Nucleated RBC 0 10^3/ul Nucleated RBC % 0 ABG pH (7.35-7.45) ABG pCO2 (35-45) mmHg ABG pO2 (80-100) mmHg ABG HCO3 (19-31) mmol/L ABG O2 Saturation (95-98) % ABG Base Excess (-2.0-2.0) Sodium 131 L (135-145) mmol/L Potassium 3.6 (3.5-5.0) mmol/L Chloride 94 L (101-111) mmol/L Carbon Dioxide 17 L (22-32) mmol/L Anion Gap 20 H (2-11) mmol/L BUN 9 (6-24) mg/dL Creatinine 0.64 (0.51-0.95) mg/dL Est GFR ( Amer) 122.5 (>60) Est GFR (Non-Af Amer) 101.3 (>60) BUN/Creatinine Ratio 14.1 (8-20) Glucose 361 H (70-100) mg/dL Lactic Acid 9.2 H* (0.5-2.0) mmol/L Calcium 9.4 (8.6-10.3) mg/dL Total Bilirubin 0.20 (0.2-1.0) mg/dL AST 14 (13-39) U/L ALT 11 (7-52) U/L Alkaline Phosphatase 142 H (34-104) U/L Total Creatine Kinase 45 (10-223) U/L CK-MB (CK-2) 2.1 (0.6-6.3) ng/mL Troponin I 0.19 H* (<0.04) ng/mL C-Reactive Protein 55.26 H (<8.01) mg/L Total Protein 7.3 (6.4-8.9) g/dL Albumin 4.1 (3.2-5.2) g/dL Globulin 3.2 (2-4) g/dL Albumin/Globulin Ratio 1.3 (1-3) Phenytoin 7.7 L (10-20) mcg/mL 03/01/18 Range/Units 18:35 WBC (3.5-10.8) 10^3/ul RBC (4.00-5.40) 10^6/ul Hgb (12.0-16.0) g/dl Hct (35-47) % MCV (80-97) fL MCH (27-31) pg MCHC (31-36) g/dl RDW (10.5-15) % Plt Count (150-450) 10^3/ul MPV (7.4-10.4) um3 Neut % (Auto) (38-83) % Lymph % (Auto) (25-47) % [place] % (Auto) (0-7) % Eos % (Auto) (0-6) % Baso % (Auto) (0-2) % Absolute Neuts (auto) (1.5-7.7) 10^3/ul Absolute Lymphs (auto) (1.0-4.8) 10^3/ul Absolute Monos (auto) (0-0.8) 10^3/ul Absolute Eos (auto) (0-0.6) 10^3/ul Absolute Basos (auto) (0-0.2) 10^3/ul Absolute Nucleated RBC 10^3/ul Nucleated RBC % ABG pH 7.32 L (7.35-7.45) ABG pCO2 35 (35-45) mmHg ABG pO2 67 L (80-100) mmHg ABG HCO3 19.1 (19-31) mmol/L ABG O2 Saturation 93.7 L (95-98) % ABG Base Excess -7.3 L (-2.0-2.0) Sodium (135-145) mmol/L Potassium (3.5-5.0) mmol/L Chloride (101-111) mmol/L Carbon Dioxide (22-32) mmol/L Anion Gap (2-11) mmol/L BUN (6-24) mg/dL Creatinine (0.51-0.95) mg/dL Est GFR ( Amer) (>60) Est GFR (Non-Af Amer) (>60) BUN/Creatinine Ratio (8-20) Glucose (70-100) mg/dL Lactic Acid (0.5-2.0) mmol/L Calcium (8.6-10.3) mg/dL Total Bilirubin (0.2-1.0) mg/dL AST (13-39) U/L ALT (7-52) U/L Alkaline Phosphatase (34-104) U/L Total Creatine Kinase (10-223) U/L CK-MB (CK-2) (0.6-6.3) ng/mL Troponin I (<0.04) ng/mL C-Reactive Protein (<8.01) mg/L Total Protein (6.4-8.9) g/dL Albumin (3.2-5.2) g/dL Globulin (2-4) g/dL Albumin/Globulin Ratio (1-3) Phenytoin (10-20) mcg/mL Result Diagrams: 03/01/18 18:32 03/01/18 18:32 Lab Statement: Any lab studies that have been ordered have been reviewed, and results considered in the medical decision making process. Course/Dx - Course Course Of Treatment: On arrival into the ED, patients O2 sat currently at 75, patient was placed on nasal cannula 3 L and continues to drop. She was then placed on full mask and continued to drop into the high 60s. Labs obtained including blood cultures and ABG. Patient states she is feeling well. She was then placed on BiPAP which increased her oxygen saturation to around 93%. Discussed with family the possibility of needing to intubate due to BiPAP throughout possible aspiration pneumonia. X-ray obtained which shows aspirate infiltrates throughout. Dr. Streeter to intubate patient. RSI WITH VERSED 5MG AND ETOMIDATE 20MG IV. DIPROVAN DRIP STARTED. INTUBATED WITH A 8 ET TUBE. CO2 BACK. BREATH SOUNDS BOTH SIDES. TUBE PLACEMENT CONFIRMED BY CXR. Neurology, Dr. Ghosh called who recommended her evening dose of phenytoin [address] Argueta, hospitalist called who agrees to admit patient to their service. WBC elevated at 19.4 and patient is a metabolic acidosis. Lactic acid 9.2. Troponin 0.19. Patient successfully transferred to the ICU. - Diagnoses Differential Diagnosis/HQI/PQRI: Positive: Airway Obstruction, Airway Foreign Body, CHF, Pneumonia Provider Diagnoses: Aspiration pneumonia, Hypoxia - Physician Notifications Discussed Care of Patient With: Krunal Youssef Instructed by Provider To: Admit As Inpatient - Critical Care Time Critical Care Time: 30-74 min - 60 minutes CC time Discharge - Sign-Out/Discharge Documenting (check all that apply): Patient Departure All imaging exams completed and their final reports reviewed: Yes - Discharge Plan Condition: Critical Disposition: ADMITTED TO [facility] - Billing Disposition and Condition Condition: CRITICAL Disposition: Admitted to [facility]
[2018-03-01] MEDS ORDERED: Norepinephrine VIAL* 4 MG in NS 0.9% 250 ML* 246 ML IV SCH (22:00)
[2018-03-01] MEDS ORDERED: Norepinephrine 16MCG/ML IVPRE* 4,000 MCG/250 ML BAG IV SCH (22:00)
[2018-03-01] MEDS ORDERED: NS IV SCH (22:00)
[2018-03-01] MEDS ORDERED: NOREPINEPHRINE IV SCH (22:00)
[2018-03-01] MEDS: Propofol* 100 ML IV SCH (22:13)
[2018-03-01] MEDS ORDERED: Aspirin SUPP* 300 MG PR ONE (22:27)
--- NOTE | 2018-03-01 22:43 | ED ---
Complex/Multi-Sys Presentation - HPI Summary HPI Summary: Patient is a 43-year-old female presenting to the ED after a seizure with a possible aspiration pneumonia. Mother is at bedside. Patient is developmentally delayed, however is able to tell me a brief history. She states she was out to eat with her friends when her friends noticed she was having a seizure. She does not recall the events and is unsure if this was a seizure. However when she awoke she was coughing. She arrives to the ED continuing to still cough, however denies any SOB. She states she feels otherwise well and denies any fatigue. Denies hitting her head or LOC. History of seizures, last seizure was 2000 which she had aspiration pneumonia at that time, needed to be intubated and transferred to another hospital. On arrival to the ED she continues to decline with her sats in the 60s. She is currently on phenytoin 200 mg twice a day and Dilantin 30 mg twice a day. Neurologist is in [place]. - History Of Current Complaint Chief Complaint: EDSeizure Time Seen by Provider: 03/01/18 17:47 Hx Obtained From: Patient - Allergies/Home Medications Allergies/Adverse Reactions: Allergies Allergy/AdvReac Type Severity Reaction Status Date / Time adhesive tape Allergy Unknown Verified 11/05/17 08:46 Reaction Details Cephalosporins Allergy Unknown Verified 11/05/17 08:46 Reaction Details Penicillins Allergy Rash Verified 11/05/17 08:46 PMH/Surg Hx/FS Hx/Imm Hx Endocrine/Hematology History: Reports: Hx Diabetes Denies: Hx Systemic Lupus Erythematosus Cardiovascular History: Reports: Hx Hypertension, Other Cardiovascular Problems/ Disorders - seizures Denies: Hx Congestive Heart Failure History: Reports: Hx Kidney Stones - LITHO 10-12 YEARS AGO, Denies: Hx Dialysis, Hx Renal Disease Musculoskeletal History: Denies: Hx Rheumatoid Arthritis - Cancer History Hx Chemotherapy: No - Surgical History Surgery Procedure, Year, and Place: kidney stone blasting, right hip surgery, heel lengthing right leg - Immunization History Immunizations Up to Date: Unable to Obtain/Confirm Infectious Disease History: No Infectious Disease History: Denies: Traveled Outside the [place] in Last 30 Days - Family History Known Family History: Negative: Renal Disease - Social History Occupation: Unemployed Lives: With Family Alcohol Use: None Hx Substance Use: No Substance Use Type: Reports: None Hx Tobacco Use: No Smoking Status (MU): Never Smoked Tobacco Have You Smoked in the Last Year: No Review of Systems Constitutional: Negative Negative: Fever, Chills, Fatigue, Skin Diaphoresis Negative: Palpitations, Chest Pain Positive: Shortness Of Breath, Cough Negative: Abdominal Pain, Vomiting, Diarrhea, Nausea Genitourinary: Negative Positive: no symptoms reported, see HPI Negative: Arthralgia, Myalgia Neurological: Negative Positive: Anxious All Other Systems Reviewed And Are Negative: Yes Physical Exam Triage Information Reviewed: Yes Vital Signs On Initial Exam: Initial Vitals Temp Pulse Resp BP Pulse Ox 97.4 F 111 20 134/73 72 03/01/18 17:40 03/01/18 17:40 03/01/18 17:40 03/01/18 17:40 03/01/18 17:40 Vital Signs Reviewed: Yes Appearance: Positive: Well-Appearing, Well-Nourished Skin: Positive: Warm, Skin Color Reflects Adequate Perfusion Head/Face: Positive: Normal Head/Face Inspection Eyes: Positive: EOMI, Conjunctiva Clear Neck: Positive: Supple, No Lymphadenopathy Respiratory/Lung Sounds: Positive: Rhonchi, Wheezes, Unable to speak in full sentences Cardiovascular: Positive: RRR, Pulses are Symmetrical in both Upper and Lower Extremities Bowel Sounds: Positive: Present Neurological: Positive: Sensory/Motor Intact, Alert, Oriented to Person Place, Time, Speech Normal Psychiatric: Positive: Anxious AVPU Assessment: Alert Procedures - Central Line Left Subclavian Triple Lumen Central Venous Catheter Central Line Lumen: triple Central Line Procedure: betadine prep, sterile drapes applied, sterile dressing applied Central Line Position: subclavian (L) Anesthesia: Lidocaine cc's of anesthesia: 5 Complications: none Central Line Post Position: sutured, good blood return, position confirmed w/ CXR Diagnostics - Vital Signs Vital Signs Temp Pulse Resp BP Pulse Ox 03/01/18 19:19 113 114/86 94 03/01/18 19:00 112 94 03/01/18 18:49 118 132/82 93 03/01/18 18:44 111 126/89 92 03/01/18 18:40 113 29 89 03/01/18 18:00 122 58 03/01/18 17:49 122 130/93 60 03/01/18 17:40 36.3 C 111 20 134/73 72 - Laboratory Lab Results: Lab Results 03/01/18 03/01/18 03/01/18 Range/Units 18:32 18:32 18:32 WBC 19.4 H (3.5-10.8) 10^3/ul RBC 5.21 (4.00-5.40) 10^6/ul Hgb 13.0 (12.0-16.0) g/dl Hct 40 (35-47) % MCV 77 L (80-97) fL MCH 25 L (27-31) pg MCHC 32 (31-36) g/dl RDW 19 H (10.5-15) % Plt Count 415 (150-450) 10^3/ul MPV 7.5 (7.4-10.4) um3 Neut % (Auto) 81.4 (38-83) % Lymph % (Auto) 9.0 L (25-47) % [place] % (Auto) 7.5 H (0-7) % Eos % (Auto) 1.9 (0-6) % Baso % (Auto) 0.2 (0-2) % Absolute Neuts (auto) 15.8 H (1.5-7.7) 10^3/ul Absolute Lymphs (auto) 1.8 (1.0-4.8) 10^3/ul Absolute Monos (auto) 1.5 H (0-0.8) 10^3/ul Absolute Eos (auto) 0.4 (0-0.6) 10^3/ul Absolute Basos (auto) 0 (0-0.2) 10^3/ul Absolute Nucleated RBC 0 10^3/ul Nucleated RBC % 0 ABG pH (7.35-7.45) ABG pCO2 (35-45) mmHg ABG pO2 (80-100) mmHg ABG HCO3 (19-31) mmol/L ABG O2 Saturation (95-98) % ABG Base Excess (-2.0-2.0) Sodium 131 L (135-145) mmol/L Potassium 3.6 (3.5-5.0) mmol/L Chloride 94 L (101-111) mmol/L Carbon Dioxide 17 L (22-32) mmol/L Anion Gap 20 H (2-11) mmol/L BUN 9 (6-24) mg/dL Creatinine 0.64 (0.51-0.95) mg/dL Est GFR ( Amer) 122.5 (>60) Est GFR (Non-Af Amer) 101.3 (>60) BUN/Creatinine Ratio 14.1 (8-20) Glucose 361 H (70-100) mg/dL Lactic Acid 9.2 H* (0.5-2.0) mmol/L Calcium 9.4 (8.6-10.3) mg/dL Total Bilirubin 0.20 (0.2-1.0) mg/dL AST 14 (13-39) U/L ALT 11 (7-52) U/L Alkaline Phosphatase 142 H (34-104) U/L Total Creatine Kinase 45 (10-223) U/L CK-MB (CK-2) 2.1 (0.6-6.3) ng/mL Troponin I 0.19 H* (<0.04) ng/mL C-Reactive Protein 55.26 H (<8.01) mg/L Total Protein 7.3 (6.4-8.9) g/dL Albumin 4.1 (3.2-5.2) g/dL Globulin 3.2 (2-4) g/dL Albumin/Globulin Ratio 1.3 (1-3) Phenytoin 7.7 L (10-20) mcg/mL 03/01/18 Range/Units 18:35 WBC (3.5-10.8) 10^3/ul RBC (4.00-5.40) 10^6/ul Hgb (12.0-16.0) g/dl Hct (35-47) % MCV (80-97) fL MCH (27-31) pg MCHC (31-36) g/dl RDW (10.5-15) % Plt Count (150-450) 10^3/ul MPV (7.4-10.4) um3 Neut % (Auto) (38-83) % Lymph % (Auto) (25-47) % [place] % (Auto) (0-7) % Eos % (Auto) (0-6) % Baso % (Auto) (0-2) % Absolute Neuts (auto) (1.5-7.7) 10^3/ul Absolute Lymphs (auto) (1.0-4.8) 10^3/ul Absolute Monos (auto) (0-0.8) 10^3/ul Absolute Eos (auto) (0-0.6) 10^3/ul Absolute Basos (auto) (0-0.2) 10^3/ul Absolute Nucleated RBC 10^3/ul Nucleated RBC % ABG pH 7.32 L (7.35-7.45) ABG pCO2 35 (35-45) mmHg ABG pO2 67 L (80-100) mmHg ABG HCO3 19.1 (19-31) mmol/L ABG O2 Saturation 93.7 L (95-98) % ABG Base Excess -7.3 L (-2.0-2.0) Sodium (135-145) mmol/L Potassium (3.5-5.0) mmol/L Chloride (101-111) mmol/L Carbon Dioxide (22-32) mmol/L Anion Gap (2-11) mmol/L BUN (6-24) mg/dL Creatinine (0.51-0.95) mg/dL Est GFR ( Amer) (>60) Est GFR (Non-Af Amer) (>60) BUN/Creatinine Ratio (8-20) Glucose (70-100) mg/dL Lactic Acid (0.5-2.0) mmol/L Calcium (8.6-10.3) mg/dL Total Bilirubin (0.2-1.0) mg/dL AST (13-39) U/L ALT (7-52) U/L Alkaline Phosphatase (34-104) U/L Total Creatine Kinase (10-223) U/L CK-MB (CK-2) (0.6-6.3) ng/mL Troponin I (<0.04) ng/mL C-Reactive Protein (<8.01) mg/L Total Protein (6.4-8.9) g/dL Albumin (3.2-5.2) g/dL Globulin (2-4) g/dL Albumin/Globulin Ratio (1-3) Phenytoin (10-20) mcg/mL Result Diagrams: 03/01/18 18:32 03/01/18 18:32 Lab Statement: Any lab studies that have been ordered have been reviewed, and results considered in the medical decision making process. Complex Multi-Symp Course/Dx Course Of Treatment: On arrival into the ED, patients O2 sat currently at 75, patient was placed on nasal cannula 3 L and continues to drop. She was then placed on full mask and continued to drop into the high 60s. Labs obtained including blood cultures and ABG. Patient states she is feeling well. She was then placed on BiPAP which increased her oxygen saturation to around 93%. Discussed with family the possibility of needing to intubate due to BiPAP throughout possible aspiration pneumonia. X-ray obtained which shows aspirate infiltrates throughout. Dr. Streeter to intubate patient. RSI WITH VERSED 5MG AND ETOMIDATE 20MG IV. DIPROVAN DRIP STARTED. INTUBATED WITH A 8 ET TUBE. CO2 BACK. BREATH SOUNDS BOTH SIDES. TUBE PLACEMENT CONFIRMED BY CXR. Neurology, Dr. Ghosh called who recommended her evening dose of phenytoin [address] Argueta, hospitalist called who agrees to admit patient to their service. WBC elevated at 19.4 and patient is a metabolic acidosis. Lactic acid 9.2. Troponin 0.19. Patient successfully transferred to the ICU. - Diagnoses Provider Diagnoses: Aspiration pneumonia, Hypoxia - Physician Notifications Instructed by Provider To: Admit As Inpatient - Critical Care Time Critical Care Time: 30-74 min - 60 minutes CC time Discharge - Sign-Out/Discharge Documenting (check all that apply): Patient Departure All imaging exams completed and their final reports reviewed: Yes - Discharge Plan Condition: Critical Disposition: ADMITTED TO [facility] - Billing Disposition and Condition Condition: CRITICAL Disposition: Admitted to [facility] - Attestation Statements Document Initiated by Scribe: No
[2018-03-01] MEDS: Nystatin TOP POWDER* 15 GM BTL TOPICAL SCH (22:48)
[2018-03-01] MEDS ORDERED: Levofloxacin 750 MG IVPREMIX(* 750 MG/150 ML BAG IVPB SCH (23:00)
[2018-03-02] MEDS: Chlorhexidine MOUTHWASH 0.12%* 15 ML UDC TOPICAL SCH ×4 (00:01→10:17)
[2018-03-02] MEDS: Insulin LISPRO* 1 UNITS UNIT SUBCUT SCH ×4 (00:13→09:13)
[2018-03-02] MEDS ORDERED: Heparin DRIP 25,000 UNITS(*) 25,000 UNITS/500 ML BAG IVPB SCH (01:30)
--- NOTE | 2018-03-02 01:32 | PN ---
Progress Note - Progress Note Date of Service: 03/02/18 Note: Sepsis follow up Mrs Whitmore has done better on CMV than APRV. saO2 is now in the low to mid- 90s. She remains hypotensive on norepinephrine GTT with MAP >60. Her lactic acid has come down from 9 to 4. However, her troponin has increased unexpectedly to 1.9 giving concern for possible primary cardiac as well as secondary septic troponin leak. As such, will start heparin GTT and obtain an ECHO in the AM. Overall she remains in critical condition requiring active management and close monitoring.
[2018-03-02] MEDS ORDERED: Heparin VIAL(*) 5000 UNITS/ML VIAL (FIVE THOUSAND) IV SCH (02:00)
[2018-03-02] MEDS: Norepinephrine VIAL* 8 MG in NS 0.9% 500 ML* 492 ML IV SCH ×2 (02:28→08:50)
[2018-03-02] MEDS: Propofol* 100 ML IV SCH ×2 (02:35→07:41)
[2018-03-02] MEDS ORDERED: NS 0.9% 1000 ML* 1,000 ML IV ONE (04:45)
[2018-03-02 04:56] LABS: Urine Appearance Cloudy; Urine Blood 2+ (Negative); Urine Color Amber; Urine Ketones Trace (Negative); Urine Protein 2+(100 mg/dL) (Negative); Urine Red Blood Cell 3+(>10/hpf) (Absent); Urine Specific Gravity 1.027 (1.010-1.030); Urine Urobilinogen Negative (Negative); Urine White Blood Cell 3+(>20/hpf) (Absent)
[2018-03-02] MEDS ORDERED: Levothyroxine INJ* 100 MCG/5 ML VIAL IV SCH (06:00)
[2018-03-02] MEDS ORDERED: Heparin VIAL(*) 5000 UNITS/ML VIAL (FIVE THOUSAND) SUBCUT SCH (06:00)
[2018-03-02 06:25] LABS: Hematocrit 36 % (35-47); Hemoglobin 11.3 g/dl (12.0-16.0); Mean Corpuscular HGB Conc 32 g/dl (31-36); Mean Corpuscular Hemoglobin 24 pg (27-31); Mean Corpuscular Volume 77 fL (80-97); Mean Platelet Volume 7.4 um3 (7.4-10.4); Platelet Count 238 10^3/ul (150-450); Red Blood Count 4.64 10^6/ul (4.00-5.40); Red Cell Distribution Width 19 % (10.5-15); White Blood Count 28.4 10^3/ul (3.5-10.8)
[2018-03-02] MEDS ORDERED: Hydrocortisone INJ* 100 MG VIAL IV ONE (06:30)
[2018-03-02 06:52] LABS: EGFR Non-African American 76.1 (>60)
[2018-03-02 07:03] LABS: ABS Basophils 0 10^3/ul (0-0.2); ABS Eosinophils 0 10^3/ul (0-0.6); ABS Lymphocytes 0.7 10^3/ul (1.0-4.8); ABS Monocytes 2.6 10^3/ul (0-0.8); ABS Nucleated RBC 0 10^3/ul
[2018-03-02] MEDS ORDERED: metroNIDAZOLE IV 500 MG/100ML* 500 MG/100 ML BAG IVPB SCH (08:00)
[2018-03-02 08:23] LABS: Eosinophil % 0 % (0-6); Lymphocyte % 2.6 % (25-47); Nucleated Red Blood Cells % 0.1
--- NOTE | 2018-03-02 09:06 | PN ---
Date of Service: 03/01/18 Critical Care Services: Major problem this AM is difficulty maintaining O2 sats - currenntly SpO2 in low 80s with FIO2 of 100%, PEEP = 15 cm H2O and exhaled tidal volume of 700 mls (patient failed APRV). CXR shows bilateral infiltrates consistent with ARDS. Patient also on levophed (8 mcgs/min) for hypotension. Vital Signs: Temp Pulse Resp BP SpO2 FiO2 101.1 F 88 15 118/60 78 100 Physical Exam: Gen:Somnolent but arousable Lungs:Crackles both bases. No wheezes. Extremities:No cyanosis. 1+edema. Fluid Balance (Past 24 Hours): 03/02/18 06:59 Intake Total 4663.7 Output Total 200 Balance 4463.7 Weight 236 lb Intake: IV Fluids 3543 LR 1470 NS (0.9%) 2010 NS to Maintain IV Patency 62 IVPB 320 NS to Maintain IV Patency 320 Medicated IV 745 CC - Norepinephrine/ 596 Levophed CC - Propofol/Diprivan 149 Heparin 55.7 Output: Sandhu 200 Labs: Laboratory Results - last 24 hr 03/01/18 03/01/18 03/01/18 00:39 00:39 18:32 WBC 19.4 H RBC 5.21 Hgb 13.0 Hct 40 MCV 77 L MCH 25 L MCHC 32 RDW 19 H Plt Count 415 MPV 7.5 Neut % (Auto) 81.4 Lymph % (Auto) 9.0 L [place] % (Auto) 7.5 H Eos % (Auto) 1.9 Baso % (Auto) 0.2 Absolute Neuts (auto) 15.8 H Absolute Lymphs (auto) 1.8 Absolute Monos (auto) 1.5 H Absolute Eos (auto) 0.4 Absolute Basos (auto) 0 Absolute Nucleated RBC 0 Nucleated RBC % 0 INR (Anticoag Therapy) APTT Patient Temperature ABG pH ABG pH (Temp Correct) ABG pCO2 ABG pCO2 (Temp Corrct ABG pO2 ABG pO2 (Temp Correct ABG HCO3 ABG O2 Saturation ABG Base Excess Respiration Rate O2 Delivery Device Ventilator Type Vent Mode FiO2 Inspiratory Time PEEP Pressure Support Pressure Control EPAP IPAP BiPAP Sodium Potassium Chloride Carbon Dioxide Anion Gap BUN Creatinine Est GFR ( Amer) Est GFR (Non-Af Amer) BUN/Creatinine Ratio Glucose POC Glucose (mg/dL) Lactic Acid Cancelled Calcium Total Bilirubin AST ALT Alkaline Phosphatase Total Creatine Kinase CK-MB (CK-2) Troponin I Cancelled C-Reactive Protein Total Protein Albumin Globulin Albumin/Globulin Ratio Urine Color Urine Appearance Urine pH Ur Specific [place] Urine Protein Urine Ketones Urine Blood Urine Nitrate Urine Bilirubin Urine Urobilinogen Ur Leukocyte Esterase Urine WBC (Auto) Urine RBC (Auto) Ur Squamous Epith Cells Ur Transition Epith Cell Amorphous Crystals Urine Bacteria Urine Glucose Urine Ascorbic Acid Phenytoin 03/01/18 03/01/18 03/01/18 18:32 18:32 18:35 WBC RBC Hgb Hct MCV MCH MCHC RDW Plt Count MPV Neut % (Auto) Lymph % (Auto) [place] % (Auto) Eos % (Auto) Baso % (Auto) Absolute Neuts (auto) Absolute Lymphs (auto) Absolute Monos (auto) Absolute Eos (auto) Absolute Basos (auto) Absolute Nucleated RBC Nucleated RBC % INR (Anticoag Therapy) APTT Patient Temperature ABG pH 7.32 L ABG pH (Temp Correct) ABG pCO2 35 ABG pCO2 (Temp Corrct ABG pO2 67 L ABG pO2 (Temp Correct ABG HCO3 19.1 ABG O2 Saturation 93.7 L ABG Base Excess -7.3 L Respiration Rate O2 Delivery Device Ventilator Type Vent Mode FiO2 Inspiratory Time PEEP Pressure Support Pressure Control EPAP IPAP BiPAP Sodium 131 L Potassium 3.6 Chloride 94 L Carbon Dioxide 17 L Anion Gap 20 H BUN 9 Creatinine 0.64 Est GFR ( Amer) 122.5 Est GFR (Non-Af Amer) 101.3 BUN/Creatinine Ratio 14.1 Glucose 361 H POC Glucose (mg/dL) Lactic Acid 9.2 H* Calcium 9.4 Total Bilirubin 0.20 AST 14 ALT 11 Alkaline Phosphatase 142 H Total Creatine Kinase 45 CK-MB (CK-2) 2.1 Troponin I 0.19 H* C-Reactive Protein 55.26 H Total Protein 7.3 Albumin 4.1 Globulin 3.2 Albumin/Globulin Ratio 1.3 Urine Color Urine Appearance Urine pH Ur Specific [place] Urine Protein Urine Ketones Urine Blood Urine Nitrate Urine Bilirubin Urine Urobilinogen Ur Leukocyte Esterase Urine WBC (Auto) Urine RBC (Auto) Ur Squamous Epith Cells Ur Transition Epith Cell Amorphous Crystals Urine Bacteria Urine Glucose Urine Ascorbic Acid Phenytoin 7.7 L 03/01/18 03/01/18 03/02/18 20:30 20:37 00:12 WBC RBC Hgb Hct MCV MCH MCHC RDW Plt Count MPV Neut % (Auto) Lymph % (Auto) [place] % (Auto) Eos % (Auto) Baso % (Auto) Absolute Neuts (auto) Absolute Lymphs (auto) Absolute Monos (auto) Absolute Eos (auto) Absolute Basos (auto) Absolute Nucleated RBC Nucleated RBC % INR (Anticoag Therapy) 0.91 APTT 25.7 L Patient Temperature Not Reportable ABG pH 7.31 L ABG pH (Temp Correct) Not Reportable ABG pCO2 45 ABG pCO2 (Temp Corrct Not Reportable ABG pO2 61 L ABG pO2 (Temp Correct Not Reportable ABG HCO3 21.9 ABG O2 Saturation 90.9 L ABG Base Excess -3.6 L Respiration Rate 14 O2 Delivery Device ventilator Ventilator Type 450 Vent Mode apv/cmv FiO2 100 Inspiratory Time 1.0 PEEP 5 Pressure Support Not Reportable Pressure Control Not Reportable EPAP Not Reportable IPAP Not Reportable BiPAP Not Reportable Sodium Potassium Chloride Carbon Dioxide Anion Gap BUN Creatinine Est GFR ( Amer) Est GFR (Non-Af Amer) BUN/Creatinine Ratio Glucose POC Glucose (mg/dL) 234 H Lactic Acid Calcium Total Bilirubin AST ALT Alkaline Phosphatase Total Creatine Kinase CK-MB (CK-2) Troponin I C-Reactive Protein Total Protein Albumin Globulin Albumin/Globulin Ratio Urine Color Urine Appearance Urine pH Ur Specific [place] Urine Protein Urine Ketones Urine Blood Urine Nitrate Urine Bilirubin Urine Urobilinogen Ur Leukocyte Esterase Urine WBC (Auto) Urine RBC (Auto) Ur Squamous Epith Cells Ur Transition Epith Cell Amorphous Crystals Urine Bacteria Urine Glucose Urine Ascorbic Acid Phenytoin 03/02/18 03/02/18 03/02/18 00:39 00:39 04:35 WBC RBC Hgb Hct MCV MCH MCHC RDW Plt Count MPV Neut % (Auto) Lymph % (Auto) [place] % (Auto) Eos % (Auto) Baso % (Auto) Absolute Neuts (auto) Absolute Lymphs (auto) Absolute Monos (auto) Absolute Eos (auto) Absolute Basos (auto) Absolute Nucleated RBC Nucleated RBC % INR (Anticoag Therapy) APTT Patient Temperature ABG pH ABG pH (Temp Correct) ABG pCO2 ABG pCO2 (Temp Corrct ABG pO2 ABG pO2 (Temp Correct ABG HCO3 ABG O2 Saturation ABG Base Excess Respiration Rate O2 Delivery Device Ventilator Type Vent Mode FiO2 Inspiratory Time PEEP Pressure Support Pressure Control EPAP IPAP BiPAP Sodium Potassium Chloride Carbon Dioxide Anion Gap BUN Creatinine Est GFR ( Amer) Est GFR (Non-Af Amer) BUN/Creatinine Ratio Glucose POC Glucose (mg/dL) Lactic Acid 4.3 H* Calcium Total Bilirubin AST ALT Alkaline Phosphatase Total Creatine Kinase CK-MB (CK-2) Troponin I 1.97 H* C-Reactive Protein Total Protein Albumin Globulin Albumin/Globulin Ratio Urine Color [place] Urine Appearance Cloudy Urine pH 5.0 Ur Specific [place] 1.027 Urine Protein 2+(100 mg/dl) A Urine Ketones Trace A Urine Blood 2+ A Urine Nitrate Negative Urine Bilirubin Negative Urine Urobilinogen Negative Ur Leukocyte Esterase 2+ A Urine WBC (Auto) 3+(>20/hpf) A Urine RBC (Auto) 3+(>10/hpf) A Ur Squamous Epith Cells Present A Ur Transition Epith Cell Present A Amorphous Crystals Present A Urine Bacteria Absent Urine Glucose 1+(50 mg/dl) A Urine Ascorbic Acid * A Phenytoin 03/02/18 03/02/18 03/02/18 06:10 06:10 06:10 WBC 28.4 H RBC 4.64 Hgb 11.3 L Hct 36 MCV 77 L MCH 24 L MCHC 32 RDW 19 H Plt Count 238 MPV 7.4 Neut % (Auto) 88.1 H Lymph % (Auto) 2.6 L [place] % (Auto) 9.2 H Eos % (Auto) 0 Baso % (Auto) 0.1 Absolute Neuts (auto) 25.0 H Absolute Lymphs (auto) 0.7 L Absolute Monos (auto) 2.6 H Absolute Eos (auto) 0 Absolute Basos (auto) 0 Absolute Nucleated RBC 0 Nucleated RBC % 0.1 INR (Anticoag Therapy) APTT Patient Temperature ABG pH ABG pH (Temp Correct) ABG pCO2 ABG pCO2 (Temp Corrct ABG pO2 ABG pO2 (Temp Correct ABG HCO3 ABG O2 Saturation ABG Base Excess Respiration Rate O2 Delivery Device Ventilator Type Vent Mode FiO2 Inspiratory Time PEEP Pressure Support Pressure Control EPAP IPAP BiPAP Sodium 135 Potassium 3.8 Chloride 105 Carbon Dioxide 19 L Anion Gap 11 BUN 16 Creatinine 0.82 Est GFR ( Amer) 92.1 Est GFR (Non-Af Amer) 76.1 BUN/Creatinine Ratio 19.5 Glucose 294 H POC Glucose (mg/dL) Lactic Acid 2.9 H* Calcium 7.4 L Total Bilirubin AST ALT Alkaline Phosphatase Total Creatine Kinase CK-MB (CK-2) Troponin I 1.59 H* C-Reactive Protein Total Protein Albumin Globulin Albumin/Globulin Ratio Urine Color Urine Appearance Urine pH Ur Specific [place] Urine Protein Urine Ketones Urine Blood Urine Nitrate Urine Bilirubin Urine Urobilinogen Ur Leukocyte Esterase Urine WBC (Auto) Urine RBC (Auto) Ur Squamous Epith Cells Ur Transition Epith Cell Amorphous Crystals Urine Bacteria Urine Glucose Urine Ascorbic Acid Phenytoin Studies: CXR: As mentioned Nutrition: None (other than propofol) 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 Patient is potential candidate for ECMO. Plan: Immediate (air) transfer to [facility] for ECMO
[2018-03-02] MEDS ORDERED: Midazolam* 1 MG/ML 2 ML VIAL (2 MG) ONE (09:57)
[2018-03-02] MEDS ORDERED: Rocuronium* 10 MG/ML VIAL IV ONE (10:00)
--- NOTE | 2018-03-02 10:04 | RAD ---
INDICATION: Seizures COMPARISON: Most recent comparison chest x-ray is dated March 01, 2018 acquired at 2201 hours TECHNIQUE: Single AP portable view of the chest was obtained. FINDINGS: Image quality is compromised due to the relative inferiority of a portable chest x-ray. Again seen is an appropriately positioned gastric tube and endotracheal tube. The heart and mediastinum exhibit normal size and contour. There is patchy density obscuring the bilateral lungs. Overall aeration is slightly improved when compared to the previous days chest x-ray. There is density obscuring the left hemidiaphragm and causing left costophrenic angle blunting. Visualized bones are normal for the patient's age. IMPRESSION: 1. Patchy densities obscuring the bilateral lungs could be due to pulmonary edema, pneumonitis or ARDS. Overall there is been slight improvement in the degree of aeration relative to the previous day chest x-ray. 2. Possible small left lung base pleural effusion and/or consolidation.
[2018-03-02 10:08] VITALS: BP 137/67
[2018-03-02] MEDS: Nystatin TOP POWDER* 15 GM BTL TOPICAL SCH (10:17)
[2018-03-02] MEDS ORDERED: Acetaminophen IV 1GM/100ML * 1,000 MG/100 ML VIAL IVPB ONE (10:30)
--- NOTE | 2018-03-02 10:58 | RAD ---
INDICATION: Concern for aspiration in a patient presenting with seizure COMPARISON: Most recent comparison chest x-rays dated March 01, 2018 TECHNIQUE: Single AP portable view of the chest was obtained. FINDINGS: Image quality is compromised due to the relative inferiority of a portable chest x-ray. There are patchy densities overlying the bilateral lungs. There is no particular focal or lobar consolidation. The heart and mediastinal structures are normal in size and morphology. IMPRESSION: Bilateral patchy densities could be seen with pulmonary edema, pneumonitis or ARDS according to the patient's clinical history. R1
--- NOTE | 2018-03-02 12:45 | RAD ---
INDICATION: Status post intubation in a patient with seizure COMPARISON: Most recent comparison chest x-rays from the same date acquired at 1838 hours TECHNIQUE: Single AP portable view of the chest was obtained. FINDINGS: Image quality is compromised due to the relative inferiority of a portable chest x-ray. There is been interval placement of an endotracheal tube with the tip terminating approximately 2.7 cm above the jean. A gastric tube is in place with the tip terminating overlying the expected location of the gastric fundus, well below the diaphragm. There are patchy densities overlying the bilateral lungs similar appearance to the chest x-ray acquired at 1838 hours. IMPRESSION: Interval placement of an appropriately positioned endotracheal and gastric tube in the presence of bilateral pulmonary infiltrates.
--- NOTE | 2018-03-02 12:49 | RAD ---
INDICATION: Left-sided central line placement in a patient presenting with seizures COMPARISON: Most recent comparison chest x-rays acquired 2004 hours TECHNIQUE: Single AP portable view of the chest was obtained. FINDINGS: Image quality is compromised due to the relative inferiority of a portable chest x-ray. There has been interval placement of a central line catheter in the left subclavian vein with the tip terminating at the junction of the left brachiocephalic vein and superior vena cava. Again noted are endotracheal and gastric tubes in appropriate position. The heart and mediastinum exhibit normal size and contour. There are patchy densities obscuring the bilateral lungs similar in appearance to the previous chest x-ray. Visualized bones are normal for the patient's age. IMPRESSION: 1. Interval placement of a left subclavian vein central line with the tip terminating at the superiormost SVC. There is no left-sided pneumothorax. 2. Persistent patchy densities overlying the bilateral lungs not significantly changed since the most recent chest x-ray acquired at 2004 hours.
[2018-03-02] MEDS ORDERED: Hydrocortisone INJ* 100 MG VIAL IV SCH (14:00)
--- NOTE | 2018-03-02 21:50 | DS ---
7DISCHARGE SUMMARY: DATE OF ADMISSION: 03/01/18 DATE OF DISCHARGE: 03/02/18 HISTORY OF PRESENT ILLNESS: This is a 43-year-old white female who was admitted last night with aspiration pneumonia requiring mechanical ventilation and this morning because of inability to oxygenate the patient, the patient was transferred to [facility] for ECMO. The patient's condition look like ARDS and oxygen saturations were in the 70s despite the 100% FiO2, 15 cm of PEEP and exhaled tidal volumes of at least 700 cc. Transport was done by helicopter and the patient was stable at the time of transfer. Other problems include cerebral palsy, seizure disorder, type 2 diabetes, hypertension, hypothyroidism , and anemia. On transport, the patient was receiving the following meds: 1. Levophed at 20 mcg per minute. 2. Propofol infusion at 50 mcg per kg per minute. 3. Rocuronium 100 mg IV just prior to transport. 4. Acetylcysteine 1 g IV just prior to transport. 5. Hydrocortisone 50 mg every 8 hours. 6. Synthroid 70 mcg IV daily. 7. Fosphenytoin 100 mg IV 3 times daily. 8. Pantoprazole 40 mg IV daily. DISPOSITION: The patient transferred to [facility] by air ambulance for consideration of extracorporeal membrane oxygenation therapy. [id number]/[facility] #: [id number] MTDD
== END 2018-03-02 13:00 | disposition short-term general hospital (02) | DRG 208 ==
LOC: ED 17:40 → ICU 19:40
PROVIDERS: ADMIT Hospitalist; ATTEND Internal Medicine Critical Care Medicine
PROC: 0BH17EZ Insertion of Endotracheal Airway into Trachea, Via Natural or Artificial Opening (ICD-10-PCS; principal; 2018-03-01)
PROC: 5A1935Z Respiratory Ventilation, Less than 24 Consecutive Hours (ICD-10-PCS; 2018-03-01)
DX: J69.0 Pneumonitis due to inhalation of food and vomit (principal); J96.01 Acute respiratory failure with hypoxia; J80 Acute respiratory distress syndrome; Z68.42 Body mass index [BMI] 45.0-49.9, adult; E87.2 Acidosis; I95.9 Hypotension, unspecified; G80.8 Other cerebral palsy; G40.909 Epilepsy, unspecified, not intractable, without status epilepticus; E11.9 Type 2 diabetes mellitus without complications; I10 Essential (primary) hypertension; E78.5 Hyperlipidemia, unspecified; E03.9 Hypothyroidism, unspecified; R74.8 Abnormal levels of other serum enzymes; E66.9 Obesity, unspecified; Z79.84 Long term (current) use of oral hypoglycemic drugs; Z79.899 Other long term (current) drug therapy; Z88.0 Allergy status to penicillin; Z88.8 Allergy status to other drugs, medicaments and biological substances; Z91.048 Other nonmedicinal substance allergy status; Z82.49 Family history of ischemic heart disease and other diseases of the circulatory system
CPT/HCPCS: 36415; 36600; 71045; 80048; 80053; 80185; 81003; 81015; 82550; 82553; 82803; 83605; 84484; 85025; 85610; 85730; 86140; 87040; 87070; 87086; 87205; 87641; 87899; 93005; 94003; 94667; 99285; A9270-GY; J1644; J1720; J2250; J2405; J2704; J2930; J3490; Q2009

== ENCOUNTER 2022-03-18 18:21 | Inpatient (IN) ==
[2022-03-18] MEDS ORDERED: levETIRAcetam IV 1,500 MG in NS 0.9% 100 ml BAG 100 ML IVPB ONE (18:56)
[2022-03-18] MEDS ORDERED: LORazepam 2 mg VIAL 1 ml IV PUSH ONE (19:01)
[2022-03-18] MEDS ORDERED: Lorazepam PYXIS KEY PRN (19:01)
[2022-03-18] MEDS ORDERED: Succinylcholine 200 mg VIAL 20 mg/ml 10 ml VIAL (200 mg) ONE (19:12)
[2022-03-18] MEDS ORDERED: Rocuronium 50 mg VIAL 10 mg/ml 5 ml VIAL (50 mg) ONE (19:12)
[2022-03-18 19:13] LABS: Hematocrit 44 % (35-47); Hemoglobin 15.1 g/dL (12.0-16.0); Mean Corpuscular HGB Conc 34 g/dL (31-36); Mean Corpuscular Hemoglobin 31 pg (27-31); Mean Corpuscular Volume 90 fL (80-97); Mean Platelet Volume 8.9 fL (7.4-10.4); Platelet Count 365 10^3/uL (150-450); Red Blood Count 4.89 10^6 /uL (3.70-4.87); Red Cell Distribution Width 15 % (10-15)
[2022-03-18 19:15] LABS: ABS Basophils 0.1 10^3/ul (0-0.2); ABS Eosinophils 0.5 10^3/ul (0-0.6); ABS Lymphocytes 4.1 10^3/ul (1.0-4.8); ABS Neutrophils 15.1 10^3/ul (1.5-7.7); Eosinophil % 2.3 %; Lymphocyte % 18.5 %
[2022-03-18] MEDS ORDERED: Ketamine HCL 50 mg/ml 10 ml VIAL (500 MG) ONE (19:15)
[2022-03-18 19:18] LABS: INR 0.89 (0.89-1.11)
[2022-03-18] MEDS ORDERED: Propofol 10 mg/ml 100 ML BTL 100 ML ONE (19:20)
[2022-03-18] MEDS ORDERED: Rocuronium 50 mg VIAL 10 mg/ml 5 ml VIAL (50 mg) IV ONE (19:25)
[2022-03-18] MEDS ORDERED: Ketamine HCL 50 mg/ml 10 ml VIAL (500 MG) IV ONE (19:25)
[2022-03-18] MEDS ORDERED: Albuterol/Ipratropium NEB.SOL (2.5/0.5 MG) 3 ML NEB.SOLN ONE (19:38)
[2022-03-18] MEDS: Albuterol/Ipratropium NEB.SOL (2.5/0.5 MG) 3 ML NEB.SOLN INH PRN (19:42)
[2022-03-18] MEDS ORDERED: Albuterol/Ipratropium NEB.SOL (2.5/0.5 MG) 3 ML NEB.SOLN INH ONE (19:52)
[2022-03-18 19:57] LABS: ABS Monocytes 2.3 10^3/ul (0-0.8)
[2022-03-18 20:00] LABS: Albumin 4.5 g/dL (3.2-5.2); Albumin/Globulin Ratio 1.6 (1-3); Calcium 10.1 mg/dL (8.6-10.3); Globulin 2.8 g/dL (2-4); Magnesium 1.4 mg/dL (1.9-2.7); Potassium 4.1 mmol/L (3.5-5.0); Total Bilirubin 0.3 mg/dL (0.2-1.0); Total Protein 7.3 g/dL (6.4-8.9); eGFR CKD-EPI 105.5 (>60)
[2022-03-18] MEDS ORDERED: Propofol 10 mg/ml 100 ML BTL 100 ML IV SCH (20:00)
[2022-03-18] MEDS ORDERED: Acetylcysteine INH SOL (RT) 200 MG/ML 4 ML VIAL INH ONE (20:24)
[2022-03-18] MEDS ORDERED: Acetylcysteine INHALATION SOL 200 MG/ML NEB.SOLN 10 ML INH ONE (20:43)
[2022-03-18 20:50] LABS: PCO2 Arterial 61 mmHg (35-45); PO2 Arterial 62 mmHg (80-100)
[2022-03-18 20:50] LABS: Urine Appearance Clear; Urine Bilirubin Negative (Negative); Urine Blood Trace (Intact) (Negative); Urine Color Yellow; Urine Glucose 2+ (500mg/dL) (Negative); Urine Ketones 1+ (15mg/dL) (Negative); Urine Nitrite Negative (Negative); Urine Protein 3+ (>=300 mg/dL) (Negative); Urine Specific Gravity 1.025 (1.005-1.030); Urine Urobilinogen 0.2 (Negative) (Negative)
[2022-03-18 20:56] LABS: Urine Bacteria 1+ (Absent); Urine Red Blood Cell 2+(6-10/hpf) (Absent); Urine Squamous Epithelial Cell Present (Absent); Urine White Blood Cell 3+(>20/hpf) (Absent); Urine Yeast Present (Absent)
[2022-03-18] MEDS ORDERED: Lactated Ringers 1000 ml BAG 1,000 ML IV ONE (21:37)
[2022-03-18] MEDS ORDERED: Norepinephrine 16MCG/ML BAG NS 4,000 MCG/250 ML BAG IV SCH (22:00)
[2022-03-18 23:18] LABS: PCO2 Arterial 36 mmHg (35-45); PO2 Arterial 65 mmHg (80-100)
[2022-03-18] MEDS ORDERED: Furosemide 40 mg/4 ml IV VIAL IV SLOW PU ONE (23:44)
[2022-03-18] MEDS ORDERED: LEVOFLOXACIN IVPB ONE (23:45)
[2022-03-18] MEDS ORDERED: Cisatracurium 100 MG in NS 0.9% 250 ml 200 ML IV SCH (23:45)
[2022-03-18] MEDS ORDERED: [UNRECOGNIZED DRUG - OTHER] IVPB ONE (23:45)
[2022-03-18] MEDS ORDERED: metroNIDAZOLE IV 500 MG/100ML - ED ONCE IVPB ONE (23:45)
[2022-03-18] MEDS ORDERED: Magnesium Sulf 4 GM/100 ML IV 4,000 MG/100 ML BAG IVPB ONE (23:48)
[2022-03-19] MEDS ORDERED: Midazolam 50 MG VIAL IV DRIP 50 ML IV SCH ×2 (01:00→02:00)
[2022-03-19] MEDS: Propofol 10 mg/ml 100 ML BTL 100 ML IV SCH ×4 (01:00→21:55)
[2022-03-19] MEDS ORDERED: Ketamine 500 mg in 500 mL NS for Continuous Infusion IV SCH (01:00)
[2022-03-19] MEDS ORDERED: Midazolam 5 mg/5 ml VIAL 1 mg/ml 5 ml VIAL (5 mg) IV SLOW PU ONE (01:11)
[2022-03-19] MEDS ORDERED: Midazolam 5 mg/5 ml VIAL 1 mg/ml 5 ml VIAL (5 mg) ONE (01:12)
[2022-03-19] MEDS ORDERED: Artificial Tear OPHTH.OINT 3.5 GM BOTH EYES SCH (01:30)
[2022-03-19] MEDS ORDERED: Cisatracurium 2 MG/ML MDV 5 ML IV ONE (02:00)
[2022-03-19] MEDS: Dextran 70/Hypromellose Tears Eye Drops 15 ml BTL (for Artificials Tears) BOTH EYES SCH ×5 (02:27→21:58)
[2022-03-19 03:24] LABS: PCO2 Arterial 46 mmHg (35-45); PO2 Arterial 65 mmHg (80-100)
[2022-03-19] MEDS ORDERED: Furosemide 40 mg/4 ml IV VIAL IV ONE (03:32)
[2022-03-19] MEDS ORDERED: Norepinephrine *QUAD STRENGTH* 16 mg/250 mL NS per protocol IV SCH (04:00)
[2022-03-19 04:32] LABS: PCO2 Arterial 35 mmHg (35-45); PO2 Arterial 182 mmHg (80-100)
[2022-03-19] MEDS: Enoxaparin 40 MG/0.4 ML SYR SUBCUT SCH ×2 (04:51→21:58)
[2022-03-19] MEDS: Pantoprazole VIAL 40 MG VIAL IV SCH ×2 (04:51→08:50)
[2022-03-19] MEDS: Chlorhexidine MOUTHWASH 0.12% 15 ML UDC TOPICAL SCH ×6 (04:51→21:58)
[2022-03-19] MEDS: metroNIDAZOLE IV 500 MG/100ML 500 MG/100 ML BAG IVPB SCH ×4 (05:09→18:08)
[2022-03-19 05:43] LABS: Hematocrit 42 % (35-47); Hemoglobin 13.5 g/dL (12.0-16.0); Mean Corpuscular HGB Conc 32 g/dL (31-36); Mean Corpuscular Hemoglobin 29 pg (27-31); Mean Corpuscular Volume 88 fL (80-97); Mean Platelet Volume 8.8 fL (7.4-10.4); Platelet Count 326 10^3/uL (150-450); Red Cell Distribution Width 15 % (10-15)
[2022-03-19 06:15] LABS: Albumin 3.7 g/dL (3.2-5.2); Albumin/Globulin Ratio 1.6 (1-3); Calcium 8.5 mg/dL (8.6-10.3); Globulin 2.3 g/dL (2-4); Magnesium 1.2 mg/dL (1.9-2.7); Potassium 4.2 mmol/L (3.5-5.0); Total Bilirubin 0.3 mg/dL (0.2-1.0); eGFR CKD-EPI 77.3 (>60)
[2022-03-19] MEDS ORDERED: Dextrose 50% Syringe 50 ml 25 GM/50 ML SYRINGE IV PUSH PRN (06:22)
[2022-03-19] MEDS ORDERED: Magnesium Sulf 4 GM/100 ML IV 4,000 MG/100 ML BAG IVPB ONE (06:23)
[2022-03-19 08:33] LABS: RBC Morphology Normal (Normal)
[2022-03-19 08:34] LABS: ABS Monocytes 5.1 10^3/ul (0-0.8); ABS Neutrophils 28.9 10^3/ul (1.5-7.7); Lymphocyte % 2.8 %
[2022-03-19] MEDS: Acetaminophen IV 1 GM/100ML 1,000 MG/100 ML BAG IV PRN ×2 (09:03→17:39)
[2022-03-19] MEDS ORDERED: LaCOSAMide ORALSYR LIQ 10 MG/ML PO SCH (11:00)
[2022-03-19] MEDS: Cisatracurium 100 MG in NS 0.9% 250 ml 200 ML IV SCH ×2 (12:19→20:50)
[2022-03-19] MEDS: Norepinephrine IV 16 MG in NS 0.9% 250 ml 234 ML IV SCH ×2 (13:36→20:50)
[2022-03-19] MEDS ORDERED: Iodixanol (CONTRAST) 320 MG/ML 100 ML SDV IV ONE ×2 (15:30→16:15)
[2022-03-19] MEDS ORDERED: Perflutren Lipid Microsphere 3 ML VIAL ONE (16:01)
[2022-03-19] MEDS: LaCOSAMide ORALSYR LIQ 10 MG/ML PO SCH (21:58)
[2022-03-20] MEDS: metroNIDAZOLE IV 500 MG/100ML 500 MG/100 ML BAG IVPB SCH ×2 (00:41→09:42)
[2022-03-20] MEDS: Propofol 10 mg/ml 100 ML BTL 100 ML IV SCH ×7 (01:33→22:30)
[2022-03-20] MEDS: Acetaminophen IV 1 GM/100ML 1,000 MG/100 ML BAG IV PRN ×2 (01:53→11:11)
[2022-03-20] MEDS: Dextran 70/Hypromellose Tears Eye Drops 15 ml BTL (for Artificials Tears) BOTH EYES SCH ×2 (02:18→06:02)
[2022-03-20] MEDS: Chlorhexidine MOUTHWASH 0.12% 15 ML UDC TOPICAL SCH ×6 (02:19→22:30)
[2022-03-20 04:29] LABS: Hematocrit 35 % (35-47); Hemoglobin 12.4 g/dL (12.0-16.0); Mean Corpuscular HGB Conc 35 g/dL (31-36); Mean Corpuscular Hemoglobin 30 pg (27-31); Mean Corpuscular Volume 86 fL (80-97); Mean Platelet Volume 8.5 fL (7.4-10.4); Platelet Count 233 10^3/uL (150-450); Red Blood Count 4.09 10^6 /uL (3.70-4.87); Red Cell Distribution Width 15 % (10-15); White Blood Count 25.1 10^3/uL (3.5-10.8)
[2022-03-20 04:31] LABS: ABS Basophils 0.1 10^3/ul (0-0.2); ABS Monocytes 3.4 10^3/ul (0-0.8); ABS Neutrophils 19.6 10^3/ul (1.5-7.7); Lymphocyte % 8.1 %
[2022-03-20 04:55] LABS: Calcium 8.1 mg/dL (8.6-10.3); eGFR CKD-EPI 112.7 (>60)
[2022-03-20 05:04] LABS: Potassium 3.6 mmol/L (3.5-5.0)
[2022-03-20] MEDS: Levothyroxine 100 MCG/5 ML VIAL IV SCH (05:07)
[2022-03-20] MEDS: Cisatracurium 100 MG in NS 0.9% 250 ml 200 ML IV SCH (06:45)
[2022-03-20] MEDS: KCL 20 MEQ/100 ML IVPREMIX 20 MEQ/100 ML BAG IV SCH ×2 (07:45→09:57)
[2022-03-20] MEDS ORDERED: Artificial Tear OPHTH.OINT 3.5 GM BOTH EYES PRN (08:17)
[2022-03-20] MEDS: Pantoprazole VIAL 40 MG VIAL IV SCH (09:06)
[2022-03-20] MEDS: LaCOSAMide ORALSYR LIQ 10 MG/ML PO SCH ×2 (09:24→20:44)
[2022-03-20] MEDS: fentaNYL 100 mcg/2 ml 50 MCG/ML VIAL IV SLOW PU PRN ×3 (10:11→19:33)
[2022-03-20] MEDS: Norepinephrine 16MCG/ML BAGD5W 4,000 MCG/250 ML BAG IV SCH ×3 (12:03→20:49)
[2022-03-20] MEDS ORDERED: cefTRIAXone 1 gm/50 mL D5W 1 GM/50 ML BAG IV SCH (13:30)
[2022-03-20] MEDS ORDERED: Hydrocortisone INJ 250 MG VIAL IV ONE (14:22)
[2022-03-20] MEDS ORDERED: Hydrocortisone INJ 100 MG VIAL IV ONE (15:00)
[2022-03-20] MEDS: Enoxaparin 40 MG/0.4 ML SYR SUBCUT SCH (20:44)
[2022-03-20] MEDS: Hydrocortisone INJ 100 MG/2ML 2 ML VIAL IV SCH (22:29)
[2022-03-21] MEDS: Acetaminophen IV 1 GM/100ML 1,000 MG/100 ML BAG IV PRN ×2 (00:10→08:39)
[2022-03-21] MEDS: Propofol 10 mg/ml 100 ML BTL 100 ML IV SCH ×7 (02:06→22:45)
[2022-03-21] MEDS: Chlorhexidine MOUTHWASH 0.12% 15 ML UDC TOPICAL SCH ×6 (02:24→20:37)
[2022-03-21] MEDS: Norepinephrine 16MCG/ML BAGD5W 4,000 MCG/250 ML BAG IV SCH ×2 (03:27→12:28)
[2022-03-21] MEDS: fentaNYL 100 mcg/2 ml 50 MCG/ML VIAL IV SLOW PU PRN (04:30)
[2022-03-21 04:34] LABS: Hematocrit 35 % (35-47); Hemoglobin 11.3 g/dL (12.0-16.0); Mean Corpuscular HGB Conc 33 g/dL (31-36); Mean Corpuscular Hemoglobin 29 pg (27-31); Mean Corpuscular Volume 87 fL (80-97); Mean Platelet Volume 8.3 fL (7.4-10.4); Platelet Count 230 10^3/uL (150-450); Red Blood Count 3.97 10^6 /uL (3.70-4.87); Red Cell Distribution Width 15 % (10-15); White Blood Count 23.2 10^3/uL (3.5-10.8)
[2022-03-21] MEDS ORDERED: CEFEPIME 2 GM in Dextrose 50 mL IV SCH (05:00)
[2022-03-21] MEDS ORDERED: Cefepime ADVAN 1 GM in NS 0.9% 50 ML 50 ML IVPB SCH (05:00)
[2022-03-21] MEDS ORDERED: metroNIDAZOLE IV 500 MG/100ML 500 MG/100 ML BAG IVPB SCH (05:00)
[2022-03-21 05:05] LABS: Calcium 8.2 mg/dL (8.6-10.3); Magnesium 1.8 mg/dL (1.9-2.7); Phosphorus 2.2 mg/dL (2.5-5.0); Potassium 3.8 mmol/L (3.5-5.0); eGFR CKD-EPI 115.2 (>60)
[2022-03-21] MEDS ORDERED: Potassium Phosphate IV 15 MMOLE in NS 0.9% 250 ml 250 ML IVPB ONE (06:25)
[2022-03-21] MEDS: Levothyroxine 100 MCG/5 ML VIAL IV SCH (06:26)
[2022-03-21] MEDS ORDERED: Magnesium Sulfate 2 gm BAG 2 GM/50 ML BAG IVPB ONE (06:26)
[2022-03-21] MEDS: Hydrocortisone INJ 100 MG/2ML 2 ML VIAL IV SCH ×3 (07:31→21:49)
[2022-03-21] MEDS ORDERED: Vancomycin per Pharmacy 1 EA NOTE FOLLOW UP PRN (08:48)
[2022-03-21 08:57] LABS: ABS Lymphocytes 1.2 10^3/ul (1.0-4.8); ABS Monocytes 2.2 10^3/ul (0-0.8); ABS Neutrophils 19.9 10^3/ul (1.5-7.7); Giant Platelets Present
[2022-03-21] MEDS ORDERED: Vancomycin 1500 MG IV - x ONCE IVPB ONE (09:00)
[2022-03-21] MEDS ORDERED: Linezolid 600 MG IVPREMIX(*) 600 MG/300 ML BAG IVPB SCH (09:00)
[2022-03-21] MEDS: Pantoprazole VIAL 40 MG VIAL IV SCH (09:25)
[2022-03-21] MEDS: LaCOSAMide ORALSYR LIQ 10 MG/ML PO SCH ×2 (09:43→20:37)
[2022-03-21] MEDS ORDERED: Alteplase (CATHFLO) 2 MG VIAL IV ONE (10:05)
[2022-03-21] MEDS: Insulin GLARGINE 100 un/ml 10 ml VIAL SUBCUT SCH (11:13)
[2022-03-21 11:58] LABS: TSH Ultra Thyroid Stim Horm 0.39 mcIU/mL (0.34-5.60)
[2022-03-21] MEDS: Meropenem 2 GM in NS 0.9% 100 ml BAG 100 ML IVPB SCH ×2 (12:07→21:48)
[2022-03-21] MEDS: metroNIDAZOLE IV 500 MG/100ML 500 MG/100 ML BAG IVPB SCH ×2 (14:01→20:37)
[2022-03-21 14:46] LABS: High Sensitivity Troponin 1 Hr 905 pg/mL (<15)
[2022-03-21] MEDS: Acetaminophen IV 1 GM/100ML 1,000 MG/100 ML BAG IV SCH ×2 (15:59→20:38)
[2022-03-21] MEDS ORDERED: Cefepime 2 GM in Dextrose 2 GM/50 ML BAG IV SCH (17:00)
[2022-03-21] MEDS: Enoxaparin 40 MG/0.4 ML SYR SUBCUT SCH (20:37)
[2022-03-21] MEDS: Vancomycin 1,250 MG in NS 0.9% 250 ml 250 ML IVPB SCH (23:49)
[2022-03-22] MEDS: Albuterol/Ipratropium NEB.SOL (2.5/0.5 MG) 3 ML NEB.SOLN INH PRN (00:22)
[2022-03-22] MEDS: Saline FLUSH-CENTRAL 10 ML SYRINGE CENT\\PICC SCH ×2 (01:00→13:06)
[2022-03-22] MEDS ORDERED: Furosemide 20 mg/2 ml IV VIAL IV ONE (01:27)
[2022-03-22] MEDS: Chlorhexidine MOUTHWASH 0.12% 15 ML UDC TOPICAL SCH ×6 (01:41→22:23)
[2022-03-22] MEDS: Propofol 10 mg/ml 100 ML BTL 100 ML IV SCH ×3 (01:59→08:28)
[2022-03-22] MEDS: Acetaminophen IV 1 GM/100ML 1,000 MG/100 ML BAG IV SCH ×4 (03:30→21:48)
[2022-03-22 05:03] LABS: Hematocrit 31 % (35-47); Hemoglobin 10.2 g/dL (12.0-16.0); Mean Corpuscular HGB Conc 33 g/dL (31-36); Mean Corpuscular Hemoglobin 29 pg (27-31); Mean Corpuscular Volume 87 fL (80-97); Mean Platelet Volume 8.2 fL (7.4-10.4); Platelet Count 177 10^3/uL (150-450); Red Cell Distribution Width 16 % (10-15); White Blood Count 16.4 10^3/uL (3.5-10.8)
[2022-03-22] MEDS: Levothyroxine 100 MCG/5 ML VIAL IV SCH (05:06)
[2022-03-22] MEDS: metroNIDAZOLE IV 500 MG/100ML 500 MG/100 ML BAG IVPB SCH (05:06)
[2022-03-22 05:23] LABS: ABS Lymphocytes 1.3 10^3/ul (1.0-4.8); ABS Monocytes 1.6 10^3/ul (0-0.8); ABS Neutrophils 13.5 10^3/ul (1.5-7.7); Lymphocyte % 7.8 %
[2022-03-22 05:43] LABS: Calcium 8.1 mg/dL (8.6-10.3); HDL Cholesterol 26.3 mg/dL; Magnesium 1.8 mg/dL (1.9-2.7); Phosphorus 2.5 mg/dL (2.5-5.0); Potassium 3.5 mmol/L (3.5-5.0); eGFR CKD-EPI 115.2 (>60)
[2022-03-22] MEDS: Hydrocortisone INJ 100 MG/2ML 2 ML VIAL IV SCH ×2 (06:06→17:30)
[2022-03-22] MEDS ORDERED: Magnesium Sulfate 2 gm BAG 2 GM/50 ML BAG IVPB ONE (07:13)
[2022-03-22] MEDS: KCL 20 MEQ/100 ML IVPREMIX 20 MEQ/100 ML BAG IV SCH ×3 (08:30→11:37)
[2022-03-22] MEDS ORDERED: Dexmedetomidine 1,000 MCG in NS 0.9% 250 ml 240 ML IV SCH (09:00)
[2022-03-22] MEDS ORDERED: Midazolam 2 mg/2 ml VIAL 1 mg/ml 2 ml VIAL (2 mg) IV SLOW PU PRN (09:00)
[2022-03-22] MEDS ORDERED: Hydrocortisone INJ 100 MG/2ML 2 ML VIAL IV SCH (09:01)
[2022-03-22] MEDS: Insulin GLARGINE 100 un/ml 10 ml VIAL SUBCUT SCH (10:28)
[2022-03-22] MEDS ORDERED: Furosemide 20 mg/2 ml IV VIAL IV SLOW PU ONE (10:39)
[2022-03-22] MEDS: Pantoprazole VIAL 40 MG VIAL IV SCH (10:41)
[2022-03-22] MEDS: Meropenem 2 GM in NS 0.9% 100 ml BAG 100 ML IVPB SCH ×2 (10:43→22:24)
[2022-03-22] MEDS ORDERED: Albuterol/Ipratropium NEB.SOL (2.5/0.5 MG) 3 ML NEB.SOLN INH SCH (11:00)
[2022-03-22] MEDS ORDERED: Albuterol/Ipratropium NEB.SOL (2.5/0.5 MG) 3 ML NEB.SOLN INH PRN (11:04)
[2022-03-22] MEDS: LaCOSAMide ORALSYR LIQ 10 MG/ML PO SCH ×2 (11:37→23:23)
[2022-03-22] MEDS: Vancomycin 1,250 MG in NS 0.9% 250 ml 250 ML IVPB SCH ×2 (13:06→22:58)
[2022-03-22] MEDS: Midazolam 50 MG VIAL IV DRIP 50 ML IV SCH (15:19)
[2022-03-22] MEDS: fentaNYL 100 mcg/2 ml 50 MCG/ML VIAL IV SLOW PU PRN (15:57)
[2022-03-22] MEDS: Albuterol/Ipratropium NEB.SOL (2.5/0.5 MG) 3 ML NEB.SOLN INH SCH ×2 (19:30→23:19)
[2022-03-22] MEDS: Enoxaparin 40 MG/0.4 ML SYR SUBCUT SCH (22:23)
[2022-03-23] MEDS ORDERED: Lorazepam PYXIS KEY PRN (00:08)
[2022-03-23] MEDS ORDERED: LORazepam 2 mg VIAL 1 ml IV PUSH ONE (00:08)
[2022-03-23 00:57] LABS: PCO2 Arterial 39 mmHg (35-45); PO2 Arterial 63 mmHg (80-100)
[2022-03-23] MEDS: Saline FLUSH-CENTRAL 10 ML SYRINGE CENT\\PICC SCH ×2 (01:11→13:13)
[2022-03-23] MEDS: Albuterol/Ipratropium NEB.SOL (2.5/0.5 MG) 3 ML NEB.SOLN INH SCH ×6 (03:07→22:57)
[2022-03-23] MEDS: Chlorhexidine MOUTHWASH 0.12% 15 ML UDC TOPICAL SCH ×6 (03:46→20:43)
[2022-03-23] MEDS: Hydrocortisone INJ 100 MG/2ML 2 ML VIAL IV SCH (03:47)
[2022-03-23] MEDS: Acetaminophen IV 1 GM/100ML 1,000 MG/100 ML BAG IV SCH ×4 (03:47→20:43)
[2022-03-23] MEDS: Midazolam 50 MG VIAL IV DRIP 50 ML IV SCH ×2 (05:18→17:13)
[2022-03-23 05:44] LABS: Hematocrit 31 % (35-47); Hemoglobin 10.2 g/dL (12.0-16.0); Mean Corpuscular HGB Conc 33 g/dL (31-36); Mean Corpuscular Hemoglobin 29 pg (27-31); Mean Corpuscular Volume 88 fL (80-97); Mean Platelet Volume 8.3 fL (7.4-10.4); Platelet Count 150 10^3/uL (150-450); Red Blood Count 3.53 10^6 /uL (3.70-4.87); Red Cell Distribution Width 15 % (10-15); White Blood Count 13.2 10^3/uL (3.5-10.8)
[2022-03-23] MEDS: Levothyroxine 100 MCG/5 ML VIAL IV SCH (05:58)
[2022-03-23 06:29] LABS: Calcium 8.2 mg/dL (8.6-10.3); Magnesium 1.9 mg/dL (1.9-2.7); Phosphorus 1.8 mg/dL (2.5-5.0); Potassium 3.9 mmol/L (3.5-5.0); eGFR CKD-EPI 124.3 (>60)
[2022-03-23] MEDS ORDERED: Potassium Phosphate IV 15 MMOLE in NS 0.9% 250 ml 250 ML IVPB ONE (06:30)
[2022-03-23 07:51] LABS: ABS Lymphocytes 0.8 10^3/ul (1.0-4.8); ABS Monocytes 1.4 10^3/ul (0-0.8); ABS Neutrophils 10.9 10^3/ul (1.5-7.7); Eosinophil % 0.1 %; Lymphocyte % 6.2 %; Nucleated Red Blood Cells % 0.1
[2022-03-23] MEDS ORDERED: Insulin GLARGINE 100 un/ml 10 ml VIAL SUBCUT SCH (09:00)
[2022-03-23] MEDS: Pantoprazole VIAL 40 MG VIAL IV SCH (09:37)
[2022-03-23] MEDS: Insulin GLARGINE 100 un/ml 10 ml VIAL SUBCUT SCH (10:09)
[2022-03-23] MEDS: LaCOSAMide ORALSYR LIQ 10 MG/ML PO SCH ×2 (10:10→21:23)
[2022-03-23] MEDS: Meropenem 2 GM in NS 0.9% 100 ml BAG 100 ML IVPB SCH ×2 (10:25→23:14)
[2022-03-23] MEDS ORDERED: Vancomycin Trough Check NOTE FOLLOW UP ONE (10:30)
[2022-03-23] MEDS ORDERED: Hydrocortisone INJ 100 MG/2ML 2 ML VIAL IV SCH (11:30)
[2022-03-23] MEDS ORDERED: Midazolam 5 mg/5 ml VIAL 1 mg/ml 5 ml VIAL (5 mg) ONE ×2 (11:52→12:12)
[2022-03-23] MEDS ORDERED: Acetylcysteine INH SOL (RT) 200 MG/ML 4 ML VIAL INH ONE (12:03)
[2022-03-23] MEDS ORDERED: fentaNYL 100 mcg/2 ml 50 MCG/ML VIAL ONE (12:12)
[2022-03-23] MEDS ORDERED: fentaNYL 100 mcg/2 ml 50 MCG/ML VIAL IV SLOW PU ONE (12:42)
[2022-03-23] MEDS ORDERED: Albuterol/Ipratropium NEB.SOL (2.5/0.5 MG) 3 ML NEB.SOLN INH ONE (12:43)
[2022-03-23] MEDS: Vancomycin 1,250 MG in NS 0.9% 250 ml 250 ML IVPB SCH (12:51)
[2022-03-23] MEDS ORDERED: methylPREDNISolone SOD SUCC 40 mg/ml 1 ml VIAL IV SCH (13:00)
[2022-03-23] MEDS: Midazolam 5 mg/5 ml VIAL 1 mg/ml 5 ml VIAL (5 mg) IV SLOW PU ONE ×2 (13:05→13:11)
[2022-03-23 14:08] LABS: Body Fluid Source Broncheoalveolar lav
[2022-03-23] MEDS: Vancomycin 1000 MG in NS 0.9% 250 ML IVPB SCH ×2 (14:22→21:06)
[2022-03-23 15:15] LABS: Body Fluid Appearance Bloody; Body Fluid Color Pink
[2022-03-23] MEDS: methylPREDNISolone SOD SUCC 40 mg/ml 1 ml VIAL IV SCH (20:43)
[2022-03-23] MEDS: Enoxaparin 40 MG/0.4 ML SYR SUBCUT SCH (20:44)
[2022-03-23] MEDS: Budesonide NEB 0.5 MG/2 ML NEB.SOLN INH SCH (21:13)
[2022-03-24 00:48] LABS: Body Fluid Other Cells 72; Body Fluid Total Cells Counted 300
[2022-03-24] MEDS: Midazolam 50 MG VIAL IV DRIP 50 ML IV SCH (01:43)
[2022-03-24] MEDS: Acetaminophen IV 1 GM/100ML 1,000 MG/100 ML BAG IV SCH ×4 (02:12→21:29)
[2022-03-24] MEDS: Chlorhexidine MOUTHWASH 0.12% 15 ML UDC TOPICAL SCH ×4 (02:12→14:28)
[2022-03-24] MEDS: Saline FLUSH-CENTRAL 10 ML SYRINGE CENT\\PICC SCH ×2 (02:13→12:52)
[2022-03-24] MEDS: Albuterol/Ipratropium NEB.SOL (2.5/0.5 MG) 3 ML NEB.SOLN INH SCH ×4 (03:07→17:09)
[2022-03-24] MEDS: Vancomycin 1000 MG in NS 0.9% 250 ML IVPB SCH ×3 (05:46→21:30)
[2022-03-24] MEDS: Levothyroxine 100 MCG/5 ML VIAL IV SCH (05:48)
[2022-03-24] MEDS: methylPREDNISolone SOD SUCC 40 mg/ml 1 ml VIAL IV SCH ×3 (05:48→21:51)
[2022-03-24 06:10] LABS: Hematocrit 28 % (35-47); Hemoglobin 9.1 g/dL (12.0-16.0); Mean Corpuscular HGB Conc 33 g/dL (31-36); Mean Corpuscular Hemoglobin 29 pg (27-31); Mean Corpuscular Volume 88 fL (80-97); Mean Platelet Volume 8.3 fL (7.4-10.4); Platelet Count 148 10^3/uL (150-450); Red Blood Count 3.19 10^6 /uL (3.70-4.87); Red Cell Distribution Width 15 % (10-15)
[2022-03-24 06:40] LABS: ABS Monocytes 1.4 10^3/ul (0-0.8); ABS Neutrophils 8.6 10^3/ul (1.5-7.7); Lymphocyte % 8.7 %; Nucleated Red Blood Cells % 0.1
[2022-03-24 06:59] LABS: Magnesium 2.1 mg/dL (1.9-2.7); Phosphorus 2.7 mg/dL (2.5-5.0); Potassium 4.1 mmol/L (3.5-5.0); eGFR CKD-EPI 115.2 (>60)
[2022-03-24] MEDS: Budesonide NEB 0.5 MG/2 ML NEB.SOLN INH SCH ×2 (07:11→18:52)
[2022-03-24] MEDS: Pantoprazole VIAL 40 MG VIAL IV SCH (08:19)
[2022-03-24] MEDS: Insulin GLARGINE 100 un/ml 10 ml VIAL SUBCUT SCH (08:20)
[2022-03-24] MEDS: LaCOSAMide ORALSYR LIQ 10 MG/ML PO SCH (08:48)
[2022-03-24] MEDS: Meropenem 2 GM in NS 0.9% 100 ml BAG 100 ML IVPB SCH ×2 (10:26→23:53)
[2022-03-24] MEDS ORDERED: D5W 1/2 NS 1000 ml BAG 1,000 ML IV SCH (12:00)
[2022-03-24] MEDS ORDERED: Furosemide 40 mg/4 ml IV VIAL IV SLOW PU ONE (16:23)
[2022-03-24] MEDS ORDERED: Furosemide 40 mg/4 ml IV VIAL ONE (16:30)
[2022-03-24] MEDS: Acetylcysteine INHALATION SOL 200 MG/ML NEB.SOLN 10 ML INH SCH ×2 (17:11→22:42)
[2022-03-24] MEDS: Metoprolol Tartrate 5 mg VIAL 5 ml VIAL (1 mg/ml) IV SCH ×2 (17:40→21:52)
[2022-03-24 17:51] LABS: PCO2 Arterial 41 mmHg (35-45); PO2 Arterial 69 mmHg (80-100)
[2022-03-24 19:42] LABS: Hematocrit 32 % (35-47)
[2022-03-24 20:33] LABS: Lacosamide 14.3 mcg/mL (1.0 - 10.0)
[2022-03-24] MEDS: LaCOSAMide VIAL 200 MG in NS 0.9% 50 ML 50 ML IV SCH (21:29)
[2022-03-24] MEDS: Enoxaparin 40 MG/0.4 ML SYR SUBCUT SCH (21:29)
[2022-03-25] MEDS: Albuterol/Ipratropium NEB.SOL (2.5/0.5 MG) 3 ML NEB.SOLN INH SCH ×4 (00:39→19:35)
[2022-03-25] MEDS: Acetaminophen IV 1 GM/100ML 1,000 MG/100 ML BAG IV SCH ×2 (02:44→08:29)
[2022-03-25] MEDS: Saline FLUSH-CENTRAL 10 ML SYRINGE CENT\\PICC SCH ×2 (02:44→11:37)
[2022-03-25] MEDS: Acetylcysteine INHALATION SOL 200 MG/ML NEB.SOLN 10 ML INH SCH ×4 (02:50→19:36)
[2022-03-25] MEDS ORDERED: Vancomycin Trough Check NOTE FOLLOW UP ONE (05:00)
[2022-03-25 05:51] LABS: Hematocrit 30 % (35-47); Hemoglobin 9.4 g/dL (12.0-16.0); Mean Corpuscular HGB Conc 32 g/dL (31-36); Mean Corpuscular Hemoglobin 28 pg (27-31); Mean Corpuscular Volume 89 fL (80-97); Mean Platelet Volume 8.5 fL (7.4-10.4); Platelet Count 160 10^3/uL (150-450); Red Blood Count 3.34 10^6 /uL (3.70-4.87); Red Cell Distribution Width 15 % (10-15); White Blood Count 16.6 10^3/uL (3.5-10.8)
[2022-03-25] MEDS ORDERED: Levothyroxine 100 MCG/5 ML VIAL IV ONE (06:00)
[2022-03-25 06:17] LABS: Calcium 8.1 mg/dL (8.6-10.3); Potassium 3.9 mmol/L (3.5-5.0); eGFR CKD-EPI 121.3 (>60)
[2022-03-25] MEDS: Metoprolol Tartrate 5 mg VIAL 5 ml VIAL (1 mg/ml) IV SCH ×4 (06:18→21:11)
[2022-03-25] MEDS: methylPREDNISolone SOD SUCC 40 mg/ml 1 ml VIAL IV SCH ×3 (06:19→21:10)
[2022-03-25] MEDS: Vancomycin 1000 MG in NS 0.9% 250 ML IVPB SCH ×3 (06:33→21:12)
[2022-03-25 06:48] LABS: ABS Lymphocytes 1.2 10^3/ul (1.0-4.8); ABS Monocytes 1.7 10^3/ul (0-0.8); ABS Neutrophils 13.7 10^3/ul (1.5-7.7); Lymphocyte % 7.3 %
[2022-03-25 06:49] LABS: Polychromasia 1+
[2022-03-25] MEDS: Budesonide NEB 0.5 MG/2 ML NEB.SOLN INH SCH ×2 (07:11→19:35)
[2022-03-25] MEDS: Insulin GLARGINE 100 un/ml 10 ml VIAL SUBCUT SCH (08:16)
[2022-03-25] MEDS: KCL 10 MEQ/50 ML IVPREMIX 10 MEQ/50 ML BAG IV SCH ×2 (08:16→09:38)
[2022-03-25] MEDS: Pantoprazole VIAL 40 MG VIAL IV SCH (08:17)
[2022-03-25] MEDS ORDERED: Acetaminophen IV 1 GM/100ML 1,000 MG/100 ML BAG IV PRN (08:33)
[2022-03-25] MEDS ORDERED: Insulin GLARGINE 100 un/ml 10 ml VIAL SUBCUT SCH (09:00)
[2022-03-25] MEDS: LaCOSAMide VIAL 200 MG in NS 0.9% 50 ML 50 ML IV SCH ×2 (09:29→21:32)
[2022-03-25] MEDS: Meropenem 2 GM in NS 0.9% 100 ml BAG 100 ML IVPB SCH ×2 (10:09→21:13)
[2022-03-25] MEDS: Enoxaparin 40 MG/0.4 ML SYR SUBCUT SCH ×2 (21:12→23:00)
[2022-03-26] MEDS: Saline FLUSH-CENTRAL 10 ML SYRINGE CENT\\PICC SCH ×2 (01:56→13:45)
[2022-03-26] MEDS ORDERED: Acetylcysteine INH SOL (RT) 200 MG/ML 4 ML VIAL INH ONE ×2 (02:14→13:09)
[2022-03-26] MEDS: Acetylcysteine INHALATION SOL 200 MG/ML NEB.SOLN 10 ML INH SCH ×4 (02:17→19:06)
[2022-03-26] MEDS: Albuterol/Ipratropium NEB.SOL (2.5/0.5 MG) 3 ML NEB.SOLN INH SCH ×4 (02:18→19:06)
[2022-03-26 04:42] LABS: Hematocrit 30 % (35-47); Hemoglobin 9.3 g/dL (12.0-16.0); Mean Corpuscular HGB Conc 31 g/dL (31-36); Mean Corpuscular Hemoglobin 28 pg (27-31); Mean Corpuscular Volume 89 fL (80-97); Mean Platelet Volume 8.7 fL (7.4-10.4); Platelet Count 152 10^3/uL (150-450); Red Blood Count 3.36 10^6 /uL (3.70-4.87); Red Cell Distribution Width 15 % (10-15); White Blood Count 16.1 10^3/uL (3.5-10.8)
[2022-03-26 05:00] LABS: ABS Lymphocytes 1.3 10^3/ul (1.0-4.8); ABS Monocytes 1.8 10^3/ul (0-0.8); Lymphocyte % 8.3 %
[2022-03-26 05:04] LABS: Calcium 8.1 mg/dL (8.6-10.3); Magnesium 2.2 mg/dL (1.9-2.7); Potassium 3.8 mmol/L (3.5-5.0); eGFR CKD-EPI 120.6 (>60)
[2022-03-26] MEDS: Vancomycin 1000 MG in NS 0.9% 250 ML IVPB SCH (05:19)
[2022-03-26] MEDS: Metoprolol Tartrate 5 mg VIAL 5 ml VIAL (1 mg/ml) IV SCH (05:19)
[2022-03-26] MEDS: methylPREDNISolone SOD SUCC 40 mg/ml 1 ml VIAL IV SCH (05:19)
[2022-03-26] MEDS: Budesonide NEB 0.5 MG/2 ML NEB.SOLN INH SCH ×2 (07:30→19:06)
[2022-03-26] MEDS: Acetylcysteine INH SOL (RT) 200 MG/ML 4 ML VIAL INH ONE ×2 (07:30→09:10)
[2022-03-26] MEDS: Insulin GLARGINE 100 un/ml 10 ml VIAL SUBCUT SCH (09:17)
[2022-03-26] MEDS: Pantoprazole VIAL 40 MG VIAL IV SCH (09:17)
[2022-03-26] MEDS: LaCOSAMide VIAL 200 MG in NS 0.9% 50 ML 50 ML IV SCH (09:34)
[2022-03-26] MEDS: methylPREDNISolone SOD SUCC 125 mg 2 ML VIAL IV SCH (16:53)
[2022-03-26] MEDS: Enoxaparin 40 MG/0.4 ML SYR SUBCUT SCH (21:02)
[2022-03-27] MEDS: Albuterol/Ipratropium NEB.SOL (2.5/0.5 MG) 3 ML NEB.SOLN INH SCH ×4 (00:17→22:05)
[2022-03-27] MEDS: Acetylcysteine INHALATION SOL 200 MG/ML NEB.SOLN 10 ML INH SCH ×5 (00:17→22:06)
[2022-03-27] MEDS: Saline FLUSH-CENTRAL 10 ML SYRINGE CENT\\PICC SCH ×2 (00:59→16:07)
[2022-03-27] MEDS: methylPREDNISolone SOD SUCC 125 mg 2 ML VIAL IV SCH (04:59)
[2022-03-27 05:21] LABS: Hematocrit 28 % (35-47); Hemoglobin 9.1 g/dL (12.0-16.0); Mean Corpuscular HGB Conc 32 g/dL (31-36); Mean Corpuscular Hemoglobin 28 pg (27-31); Mean Corpuscular Volume 87 fL (80-97); Mean Platelet Volume 8.7 fL (7.4-10.4); Platelet Count 168 10^3/uL (150-450); Red Blood Count 3.25 10^6 /uL (3.70-4.87); Red Cell Distribution Width 15 % (10-15); White Blood Count 12.5 10^3/uL (3.5-10.8)
[2022-03-27 05:42] LABS: Potassium 3.3 mmol/L (3.5-5.0); eGFR CKD-EPI 128.6 (>60)
[2022-03-27 05:46] LABS: RBC Morphology Normal (Normal)
[2022-03-27 05:47] LABS: ABS Eosinophils 0.1 10^3/ul (0-0.6); ABS Lymphocytes 1.6 10^3/ul (1.0-4.8); ABS Monocytes 1.8 10^3/ul (0-0.8); Eosinophil % 0.5 %; Lymphocyte % 12.8 %
[2022-03-27] MEDS ORDERED: KCL 20 MEQ/100 ML IVPREMIX 20 MEQ/100 ML BAG IV ONE (06:39)
[2022-03-27] MEDS ORDERED: Acetylcysteine INH SOL (RT) 200 MG/ML 4 ML VIAL INH ONE ×2 (07:10→13:41)
[2022-03-27] MEDS: Budesonide NEB 0.5 MG/2 ML NEB.SOLN INH SCH ×3 (07:47→22:05)
[2022-03-27] MEDS: Insulin GLARGINE 100 un/ml 10 ml VIAL SUBCUT SCH (08:30)
[2022-03-27] MEDS ORDERED: Potassium Chloride LIQUID 20 MEQ/15 ML LIQUID PO ONE (08:42)
[2022-03-27] MEDS: Enoxaparin 40 MG/0.4 ML SYR SUBCUT SCH (21:24)
[2022-03-28] MEDS: Saline FLUSH-CENTRAL 10 ML SYRINGE CENT\\PICC SCH ×2 (00:31→15:02)
[2022-03-28] MEDS: Albuterol/Ipratropium NEB.SOL (2.5/0.5 MG) 3 ML NEB.SOLN INH SCH ×4 (00:50→19:12)
[2022-03-28] MEDS: Acetylcysteine INHALATION SOL 200 MG/ML NEB.SOLN 10 ML INH SCH ×4 (00:50→19:12)
[2022-03-28] MEDS: Budesonide NEB 0.5 MG/2 ML NEB.SOLN INH SCH ×2 (07:59→19:12)
[2022-03-28 09:13] LABS: Hematocrit 27 % (35-47); Hemoglobin 8.4 g/dL (12.0-16.0); Mean Corpuscular HGB Conc 32 g/dL (31-36); Mean Corpuscular Hemoglobin 28 pg (27-31); Mean Corpuscular Volume 89 fL (80-97); Platelet Count 204 10^3/uL (150-450); Red Cell Distribution Width 15 % (10-15)
[2022-03-28 09:35] LABS: Albumin/Globulin Ratio 1.4 (1-3); Calcium 8.1 mg/dL (8.6-10.3); Globulin 2.2 g/dL (2-4); Magnesium 1.9 mg/dL (1.9-2.7); Potassium 3.3 mmol/L (3.5-5.0); Total Bilirubin 0.6 mg/dL (0.2-1.0); Total Protein 5.2 g/dL (6.4-8.9); eGFR CKD-EPI 122.8 (>60)
[2022-03-28] MEDS: Insulin GLARGINE 100 un/ml 10 ml VIAL SUBCUT SCH (10:02)
[2022-03-28 10:59] LABS: RBC Morphology Normal (Normal)
[2022-03-28 11:00] LABS: ABS Eosinophils 0.2 10^3/ul (0-0.6); ABS Lymphocytes 1.9 10^3/ul (1.0-4.8); ABS Monocytes 1.6 10^3/ul (0-0.8); ABS Neutrophils 8.3 10^3/ul (1.5-7.7); Eosinophil % 1.3 %; Nucleated Red Blood Cells % 0.2
[2022-03-28] MEDS ORDERED: Potassium Chlor 20 meq TAB.ER PO ONE (13:12)
[2022-03-28] MEDS: Enoxaparin 40 MG/0.4 ML SYR SUBCUT SCH (20:47)
[2022-03-29] MEDS: Saline FLUSH-CENTRAL 10 ML SYRINGE CENT\\PICC SCH (01:26)
[2022-03-29] MEDS: Albuterol/Ipratropium NEB.SOL (2.5/0.5 MG) 3 ML NEB.SOLN INH SCH ×2 (01:32→07:55)
[2022-03-29] MEDS: Acetylcysteine INHALATION SOL 200 MG/ML NEB.SOLN 10 ML INH SCH ×3 (01:32→08:00)
[2022-03-29 05:58] LABS: Hematocrit 30 % (35-47); Mean Corpuscular HGB Conc 33 g/dL (31-36); Mean Corpuscular Hemoglobin 29 pg (27-31); Mean Corpuscular Volume 88 fL (80-97); Mean Platelet Volume 8.8 fL (7.4-10.4); Platelet Count 190 10^3/uL (150-450); Red Blood Count 3.41 10^6 /uL (3.70-4.87); Red Cell Distribution Width 15 % (10-15)
[2022-03-29 06:04] LABS: ABS Eosinophils 0.2 10^3/ul (0-0.6); ABS Lymphocytes 2.5 10^3/ul (1.0-4.8); ABS Monocytes 1.4 10^3/ul (0-0.8); ABS Neutrophils 6.8 10^3/ul (1.5-7.7); Eosinophil % 1.5 %; Lymphocyte % 23.1 %; Nucleated Red Blood Cells % 0.1
[2022-03-29 06:07] LABS: Calcium 8.1 mg/dL (8.6-10.3); Potassium 3.5 mmol/L (3.5-5.0); eGFR CKD-EPI 125.1 (>60)
[2022-03-29] MEDS: Budesonide NEB 0.5 MG/2 ML NEB.SOLN INH SCH (07:55)
[2022-03-29 08:02] VITALS: BP 126/63
[2022-03-29] MEDS: Insulin GLARGINE 100 un/ml 10 ml VIAL SUBCUT SCH (09:35)
== END 2022-03-29 09:45 | DRG 207 ==
LOC: ED 18:21 → SUATTDRO 23:22 → EDHOLD 23:22 → ICU 03-19 00:52 → MEDTELE 03-27 09:16
PROVIDERS: ADMIT Internal Medicine; ATTEND Internal Medicine

== ENCOUNTER 2022-03-28 14:40 | Inpatient (IN) ==
[2022-03-29] MEDS ORDERED: Senna TAB 8.6 mg TAB PO PRN (11:52)
[2022-03-29] MEDS ORDERED: Magnesium Hydroxide LIQ 30 ML UDC PO PRN (11:52)
[2022-03-29] MEDS ORDERED: Dextrose 50% Syringe 50 ml 25 GM/50 ML SYRINGE IV PUSH PRN (12:06)
[2022-03-29] MEDS ORDERED: Albuterol/Ipratropium NEB.SOL (2.5/0.5 MG) 3 ML NEB.SOLN INH PRN (12:38)
[2022-03-29] MEDS: Enoxaparin 40 MG/0.4 ML SYR SUBCUT SCH (20:26)
[2022-03-30 06:09] LABS: Hematocrit 29 % (35-47); Hemoglobin 9.4 g/dL (12.0-16.0); Mean Corpuscular HGB Conc 33 g/dL (31-36); Mean Corpuscular Hemoglobin 28 pg (27-31); Mean Corpuscular Volume 87 fL (80-97); Mean Platelet Volume 8.5 fL (7.4-10.4); Platelet Count 211 10^3/uL (150-450); Red Blood Count 3.33 10^6 /uL (3.70-4.87); Red Cell Distribution Width 15 % (10-15); White Blood Count 11.9 10^3/uL (3.5-10.8)
[2022-03-30 06:52] LABS: Albumin 2.9 g/dL (3.2-5.2); Albumin/Globulin Ratio 1.5 (1-3); Calcium 8.1 mg/dL (8.6-10.3); Potassium 3.3 mmol/L (3.5-5.0); Total Bilirubin 0.5 mg/dL (0.2-1.0); Total Protein 4.9 g/dL (6.4-8.9)
[2022-03-30] MEDS: Aspirin EC 81 mg TAB.EC (enteric coated) PO SCH (07:29)
[2022-03-30 08:46] LABS: ABS Eosinophils 0.2 10^3/ul (0-0.6); ABS Lymphocytes 2.7 10^3/ul (1.0-4.8); ABS Monocytes 1.3 10^3/ul (0-0.8); ABS Neutrophils 7.7 10^3/ul (1.5-7.7); Eosinophil % 1.7 %; Lymphocyte % 22.7 %; Nucleated Red Blood Cells % 0.2; RBC Morphology Normal (Normal)
[2022-03-30] MEDS: Potassium Chlor 20 meq TAB.ER PO SCH (19:53)
[2022-03-30] MEDS: Enoxaparin 40 MG/0.4 ML SYR SUBCUT SCH (19:55)
[2022-03-31] MEDS: Aspirin EC 81 mg TAB.EC (enteric coated) PO SCH (08:22)
[2022-03-31] MEDS: Potassium Chlor 20 meq TAB.ER PO SCH ×2 (08:23→21:07)
[2022-03-31] MEDS: Enoxaparin 40 MG/0.4 ML SYR SUBCUT SCH (21:10)
[2022-04-01] MEDS: Potassium Chlor 20 meq TAB.ER PO SCH ×2 (08:37→20:20)
[2022-04-01] MEDS: Aspirin EC 81 mg TAB.EC (enteric coated) PO SCH (08:37)
[2022-04-01] MEDS: Enoxaparin 40 MG/0.4 ML SYR SUBCUT SCH (20:19)
[2022-04-02] MEDS: Aspirin EC 81 mg TAB.EC (enteric coated) PO SCH (08:34)
[2022-04-02] MEDS: Enoxaparin 40 MG/0.4 ML SYR SUBCUT SCH (20:00)
[2022-04-03] MEDS: Aspirin EC 81 mg TAB.EC (enteric coated) PO SCH (09:08)
[2022-04-03] MEDS: Enoxaparin 40 MG/0.4 ML SYR SUBCUT SCH (20:06)
[2022-04-04] MEDS: Aspirin EC 81 mg TAB.EC (enteric coated) PO SCH (08:21)
[2022-04-04] MEDS: Enoxaparin 40 MG/0.4 ML SYR SUBCUT SCH (20:41)
[2022-04-04] MEDS: Nystatin TOP POWDER 15 GM BTL TOPICAL SCH (20:43)
[2022-04-05] MEDS: Aspirin EC 81 mg TAB.EC (enteric coated) PO SCH (09:32)
[2022-04-05] MEDS: Nystatin TOP POWDER 15 GM BTL TOPICAL SCH ×3 (09:32→21:06)
[2022-04-05] MEDS: Enoxaparin 40 MG/0.4 ML SYR SUBCUT SCH (21:06)
[2022-04-06 06:29] LABS: Hematocrit 31 % (35-47); Hemoglobin 10.1 g/dL (12.0-16.0); Mean Corpuscular HGB Conc 33 g/dL (31-36); Mean Corpuscular Hemoglobin 29 pg (27-31); Mean Corpuscular Volume 87 fL (80-97); Mean Platelet Volume 8.2 fL (7.4-10.4); Platelet Count 256 10^3/uL (150-450); Red Blood Count 3.53 10^6 /uL (3.70-4.87); Red Cell Distribution Width 15 % (10-15); White Blood Count 11.7 10^3/uL (3.5-10.8)
[2022-04-06 06:38] LABS: ABS Eosinophils 0.1 10^3/ul (0-0.6); ABS Lymphocytes 3.3 10^3/ul (1.0-4.8); ABS Monocytes 1.8 10^3/ul (0-0.8); ABS Neutrophils 6.4 10^3/ul (1.5-7.7); Eosinophil % 0.8 %; Lymphocyte % 28.2 %
[2022-04-06 07:24] LABS: Albumin 3.7 g/dL (3.2-5.2); Albumin/Globulin Ratio 1.7 (1-3); Calcium 9.1 mg/dL (8.6-10.3); Globulin 2.2 g/dL (2-4); Total Bilirubin 0.5 mg/dL (0.2-1.0); Total Protein 5.9 g/dL (6.4-8.9); eGFR CKD-EPI 121.3 (>60)
[2022-04-06] MEDS: Nystatin TOP POWDER 15 GM BTL TOPICAL SCH ×2 (08:30→21:30)
[2022-04-06] MEDS: Aspirin EC 81 mg TAB.EC (enteric coated) PO SCH (08:35)
[2022-04-06] MEDS: Potassium Chlor 20 meq TAB.ER PO SCH (20:41)
[2022-04-06] MEDS: Enoxaparin 40 MG/0.4 ML SYR SUBCUT SCH (20:43)
[2022-04-07] MEDS: Potassium Chlor 20 meq TAB.ER PO SCH ×2 (09:44→20:01)
[2022-04-07] MEDS: Aspirin EC 81 mg TAB.EC (enteric coated) PO SCH (09:47)
[2022-04-07] MEDS: Nystatin TOP POWDER 15 GM BTL TOPICAL SCH ×2 (09:50→20:01)
[2022-04-07] MEDS: Enoxaparin 40 MG/0.4 ML SYR SUBCUT SCH (20:01)
[2022-04-08] MEDS: Aspirin EC 81 mg TAB.EC (enteric coated) PO SCH (09:33)
[2022-04-08] MEDS: Potassium Chlor 20 meq TAB.ER PO SCH ×2 (09:33→20:12)
[2022-04-08] MEDS: Nystatin TOP POWDER 15 GM BTL TOPICAL SCH ×2 (09:39→20:12)
[2022-04-08] MEDS: Enoxaparin 40 MG/0.4 ML SYR SUBCUT SCH (20:12)
[2022-04-09] MEDS: Nystatin TOP POWDER 15 GM BTL TOPICAL SCH ×2 (08:48→20:26)
[2022-04-09] MEDS: Aspirin EC 81 mg TAB.EC (enteric coated) PO SCH (08:49)
[2022-04-09] MEDS: Potassium Chlor 20 meq TAB.ER PO SCH ×2 (08:52→20:25)
[2022-04-09] MEDS: Enoxaparin 40 MG/0.4 ML SYR SUBCUT SCH (20:26)
[2022-04-10 06:19] LABS: Calcium 9.5 mg/dL (8.6-10.3); Potassium 3.6 mmol/L (3.5-5.0); eGFR CKD-EPI 121.3 (>60)
[2022-04-10] MEDS: Aspirin EC 81 mg TAB.EC (enteric coated) PO SCH (09:12)
[2022-04-10] MEDS: Potassium Chlor 20 meq TAB.ER PO SCH ×2 (09:13→20:53)
[2022-04-10] MEDS: Nystatin TOP POWDER 15 GM BTL TOPICAL SCH ×2 (09:18→20:52)
[2022-04-10] MEDS: Enoxaparin 40 MG/0.4 ML SYR SUBCUT SCH (20:51)
[2022-04-11] MEDS: Potassium Chlor 20 meq TAB.ER PO SCH ×2 (07:27→20:04)
[2022-04-11] MEDS: Aspirin EC 81 mg TAB.EC (enteric coated) PO SCH (07:27)
[2022-04-11] MEDS: Nystatin TOP POWDER 15 GM BTL TOPICAL SCH ×2 (08:43→20:04)
[2022-04-11] MEDS: Enoxaparin 40 MG/0.4 ML SYR SUBCUT SCH (20:08)
[2022-04-12] MEDS: Aspirin EC 81 mg TAB.EC (enteric coated) PO SCH (07:46)
[2022-04-12] MEDS: Potassium Chlor 20 meq TAB.ER PO SCH (07:46)
[2022-04-12] MEDS: Nystatin TOP POWDER 15 GM BTL TOPICAL SCH ×2 (08:40→20:27)
[2022-04-12] MEDS: Enoxaparin 40 MG/0.4 ML SYR SUBCUT SCH (20:25)
[2022-04-13 05:01] VITALS: BP 158/84
[2022-04-13 06:24] LABS: ABS Eosinophils 0.1 10^3/ul (0-0.6); ABS Lymphocytes 2.8 10^3/ul (1.0-4.8); ABS Monocytes 1.9 10^3/ul (0-0.8); ABS Neutrophils 6.7 10^3/ul (1.5-7.7); Eosinophil % 0.7 %; Hematocrit 33 % (35-47); Hemoglobin 10.5 g/dL (12.0-16.0); Lymphocyte % 24.3 %; Mean Corpuscular HGB Conc 32 g/dL (31-36); Mean Corpuscular Hemoglobin 28 pg (27-31); Mean Corpuscular Volume 87 fL (80-97); Mean Platelet Volume 8.1 fL (7.4-10.4); Platelet Count 195 10^3/uL (150-450); Red Blood Count 3.78 10^6 /uL (3.70-4.87); Red Cell Distribution Width 15 % (10-15); White Blood Count 11.5 10^3/uL (3.5-10.8)
[2022-04-13 06:55] LABS: Albumin 3.8 g/dL (3.2-5.2); Albumin/Globulin Ratio 1.9 (1-3); Calcium 9.1 mg/dL (8.6-10.3); Potassium 3.4 mmol/L (3.5-5.0); Total Bilirubin 0.4 mg/dL (0.2-1.0); Total Protein 5.8 g/dL (6.4-8.9); eGFR CKD-EPI 120.6 (>60)
[2022-04-13] MEDS: Aspirin EC 81 mg TAB.EC (enteric coated) PO SCH (08:25)
[2022-04-13] MEDS: Nystatin TOP POWDER 15 GM BTL TOPICAL SCH (08:26)
[2022-04-13] MEDS ORDERED: Potassium Chlor 20 meq TAB.ER PO SCH ×2 (09:00)
== END 2022-04-13 13:05 | disposition home health service (06) | DRG 946 ==
LOC: PMRU 03-29 11:59
PROVIDERS: ADMIT Physical Medicine & Rehabilitation; ATTEND Physical Medicine & Rehabilitation

== ENCOUNTER 2022-05-13 23:09 | Inpatient (IN) ==
[2022-05-13] MEDS ORDERED: Lactated Ringers SEPSIS* BAG 1,370 ML IV ONE (23:58)
[2022-05-13] MEDS ORDERED: Piperacillin/Tazobac ADVAN 3.375 GM in NS 0.9% 100 ml BAG 100 ML IVPB ONE (23:58)
[2022-05-14 00:29] LABS: Hematocrit 34 % (35-47); Hemoglobin 11.4 g/dL (12.0-16.0); Mean Corpuscular HGB Conc 34 g/dL (31-36); Mean Corpuscular Hemoglobin 28 pg (27-31); Mean Corpuscular Volume 82 fL (80-97); Mean Platelet Volume 7.8 fL (7.4-10.4); Platelet Count 224 10^3/uL (150-450); Red Blood Count 4.15 10^6 /uL (3.70-4.87); Red Cell Distribution Width 16 % (10-15); White Blood Count 10.9 10^3/uL (3.5-10.8)
[2022-05-14] MEDS ORDERED: Ondansetron 4 mg VIAL 2 MG/ML 2 ml VIAL IV ONE (00:31)
[2022-05-14] MEDS: cefTRIAXone 1 gm/50 mL D5W 1 GM/50 ML BAG IV ONE ×2 (00:37→02:11)
[2022-05-14 00:40] LABS: Activated Partial Thrombo Time 34.6 seconds (26.0-38.0)
[2022-05-14 01:31] LABS: Urine Appearance Clear; Urine Bilirubin Negative (Negative); Urine Blood 1+ (Negative); Urine Color Yellow; Urine Glucose 1+(50 mg/dL) (Negative); Urine Ketones 1+ (Negative); Urine Nitrite Negative (Negative); Urine Protein 1+(30 mg/dL) (Negative); Urine Specific Gravity 1.014 (1.002-1.030); Urine Urobilinogen Negative (Negative)
[2022-05-14 01:35] LABS: Urine Bacteria Absent (Absent); Urine Red Blood Cell 1+(3-5/hpf) (Absent); Urine Squamous Epithelial Cell Present (Absent); Urine White Blood Cell 1+(6-10/hpf) (Absent)
[2022-05-14 01:37] LABS: Albumin 4.3 g/dL (3.2-5.2); Albumin/Globulin Ratio 1.7 (1-3); C Reactive Protein 137.1 mg/L (<8.01); Calcium 10.1 mg/dL (8.6-10.3); Globulin 2.5 g/dL (2-4); Potassium 3.8 mmol/L (3.5-5.0); Total Bilirubin 0.4 mg/dL (0.2-1.0); Total Protein 6.8 g/dL (6.4-8.9); eGFR CKD-EPI 109.6 (>60)
[2022-05-14 01:56] LABS: ABS Eosinophils 0.4 10^3/ul (0-0.6); ABS Lymphocytes 0.3 10^3/ul (1.0-4.8); ABS Monocytes 1.8 10^3/ul (0-0.8); ABS Neutrophils 8.3 10^3/ul (1.5-7.7); Eosinophil % 4.1 %; Lymphocyte % 2.9 %
[2022-05-14 01:58] LABS: Anisocytosis 1+; Microcytosis 2+
[2022-05-14 01:59] LABS: Toxic Granulation 1+
[2022-05-14 02:00] LABS: Tear Drop Cells 1+
[2022-05-14 02:06] LABS: High Sensitivity Troponin 1 Hr 23 pg/mL (<15)
[2022-05-14 02:18] LABS: Magnesium 1.8 mg/dL (1.9-2.7)
[2022-05-14] MEDS ORDERED: diazePAM INJ CARPUJECT 5 MG/ML SYRINGE IV PRN (02:42)
[2022-05-14] MEDS: Ondansetron 4 mg VIAL 2 MG/ML 2 ml VIAL IV PRN ×2 (03:44→15:00)
[2022-05-14] MEDS: Enoxaparin 40 MG/0.4 ML SYR SUBCUT SCH (03:45)
[2022-05-14] MEDS ORDERED: Lorazepam PYXIS KEY PRN (04:00)
[2022-05-14] MEDS ORDERED: LORazepam 2 mg VIAL 1 ml IV PUSH ONE (04:00)
[2022-05-14] MEDS ORDERED: Dextrose 50% Syringe 50 ml 25 GM/50 ML SYRINGE IV PUSH PRN (04:04)
[2022-05-14 06:18] LABS: ABS Eosinophils 0.3 10^3/ul (0-0.6); ABS Lymphocytes 0.2 10^3/ul (1.0-4.8); ABS Monocytes 1.5 10^3/ul (0-0.8); ABS Neutrophils 7.7 10^3/ul (1.5-7.7); Eosinophil % 3.6 %; Hematocrit 31 % (35-47); Hemoglobin 10.4 g/dL (12.0-16.0); Lymphocyte % 2.1 %; Mean Corpuscular HGB Conc 34 g/dL (31-36); Mean Corpuscular Hemoglobin 28 pg (27-31); Mean Corpuscular Volume 82 fL (80-97); Mean Platelet Volume 7.9 fL (7.4-10.4); Nucleated Red Blood Cells % 0.1; Platelet Count 201 10^3/uL (150-450); Red Blood Count 3.76 10^6 /uL (3.70-4.87); Red Cell Distribution Width 16 % (10-15); White Blood Count 9.7 10^3/uL (3.5-10.8)
[2022-05-14 06:58] LABS: Calcium 9.2 mg/dL (8.6-10.3); Magnesium 1.6 mg/dL (1.9-2.7); Potassium 3.9 mmol/L (3.5-5.0); eGFR CKD-EPI 109.2 (>60)
[2022-05-14] MEDS: Potassium Chlor 20 meq TAB.ER PO SCH (08:37)
[2022-05-14] MEDS: Lactated Ringers 1000 ml BAG 1,000 ML IV SCH ×3 (08:43→17:37)
[2022-05-14] MEDS ORDERED: Iodixanol (CONTRAST) 320 MG/ML 100 ML SDV IV ONE (11:42)
[2022-05-14] MEDS ORDERED: Lactated Ringers 1000 ml BAG 1,000 ML IV ONE (16:08)
[2022-05-14] MEDS: Meropenem 1 GM PREMIX(*) 1 GM/50 ML BAG IV SCH (21:14)
[2022-05-15] MEDS ORDERED: Lidocaine 2% PF 5 ML VIAL IV SCH
[2022-05-15] MEDS ORDERED: Succinylcholine 200 mg VIAL 20 mg/ml 10 ml VIAL (200 mg) IV SCH
[2022-05-15] MEDS ORDERED: fentaNYL 100 mcg/2 ml 50 MCG/ML VIAL IV SCH
[2022-05-15] MEDS ORDERED: Midazolam 2 mg/2 ml VIAL 1 mg/ml 2 ml VIAL (2 mg) IV SLOW PU SCH
[2022-05-15] MEDS ORDERED: Propofol 10 MG/ML 20 ML BTL IV SCH
[2022-05-15] MEDS ORDERED: Dexamethasone IV 4 MG/ML VIAL 1 ml VIAL IV SLOW PU SCH
[2022-05-15] MEDS ORDERED: Ondansetron 4 mg VIAL 2 MG/ML 2 ml VIAL IV SCH
[2022-05-15] MEDS ORDERED: cefTRIAXone 1 gm/50 mL D5W 1 GM/50 ML BAG IV SCH (00:01)
[2022-05-15] MEDS: Meropenem 1 GM PREMIX(*) 1 GM/50 ML BAG IV SCH ×3 (02:46→20:22)
[2022-05-15] MEDS: Lactated Ringers 1000 ml BAG 1,000 ML IV SCH (05:13)
[2022-05-15] MEDS: Enoxaparin 40 MG/0.4 ML SYR SUBCUT SCH (05:14)
[2022-05-15 06:39] LABS: Hematocrit 28 % (35-47); Hemoglobin 9.4 g/dL (12.0-16.0); Mean Corpuscular HGB Conc 34 g/dL (31-36); Mean Corpuscular Hemoglobin 28 pg (27-31); Mean Corpuscular Volume 82 fL (80-97); Mean Platelet Volume 7.8 fL (7.4-10.4); Platelet Count 174 10^3/uL (150-450); Red Blood Count 3.38 10^6 /uL (3.70-4.87); Red Cell Distribution Width 17 % (10-15); White Blood Count 7.7 10^3/uL (3.5-10.8)
[2022-05-15 06:45] LABS: ABS Eosinophils 0.3 10^3/ul (0-0.6); ABS Lymphocytes 0.5 10^3/ul (1.0-4.8); ABS Monocytes 1.6 10^3/ul (0-0.8); ABS Neutrophils 5.3 10^3/ul (1.5-7.7); Eosinophil % 4.4 %; Lymphocyte % 6.9 %
[2022-05-15 07:18] LABS: Anion Gap 10 mmol/L (2-11); Blood Urea Nitrogen 13 mg/dL (6-24); CO2 Carbon Dioxide 27 mmol/L (22-32); Calcium 8.8 mg/dL (8.6-10.3); Chloride 105 mmol/L (101-111); Glucose 142 mg/dL (70-100); Potassium 3.5 mmol/L (3.5-5.0); Sodium 142 mmol/L (135-145); eGFR CKD-EPI 114.7 (>60)
[2022-05-15] MEDS: Potassium Chlor 20 meq TAB.ER PO SCH ×2 (10:23→10:31)
[2022-05-15 10:53] LABS: Total Iron Binding Capacity 372 mcg/dL (250-450); Transferrin 266 mg/dL (203-362)
[2022-05-15 11:13] LABS: % Iron Saturation 5 % (15-55); Ferritin 89.2 ng/mL (11-307); Iron < 20 ug/dL (50-212); Unsaturated Iron Binding 352 ug/dL
[2022-05-15] MEDS ORDERED: Buffered Lidocaine 1% SYRIN 1 ml INTRADERM ONE (15:28)
[2022-05-15] MEDS ORDERED: Scopolamine 1 mg/72hr PATCH TRANSDERM ONE (15:41)
[2022-05-15] MEDS ORDERED: Scopolamine 1 mg/72hr PATCH ONE (15:41)
[2022-05-15] MEDS ORDERED: Lactated Ringers 1000 ml BAG 1,000 ML IV SCH ×2 (16:00)
[2022-05-15] MEDS ORDERED: Iohexol 180 (CONTRAST) 10 ML SDV IV ONE (16:17)
[2022-05-15] MEDS ORDERED: HYDROmorphone 1 MG/1 ML SYRINGE IV PRN (17:16)
[2022-05-15] MEDS ORDERED: Prochlorperazine 5 mg/ml 2 ml VIAL (10 mg) IV PRN (17:16)
[2022-05-15] MEDS ORDERED: Naloxone 0.4 mg VIAL 0.4 mg/ml 1 ml VIAL IV PRN (17:16)
[2022-05-15] MEDS ORDERED: Acetaminophen IV 1 GM/100ML 1,000 MG/100 ML BAG IV ONE ×2 (17:22→17:23)
[2022-05-16] MEDS: Lactated Ringers 1000 ml BAG 1,000 ML IV SCH (01:18)
[2022-05-16] MEDS: Meropenem 1 GM PREMIX(*) 1 GM/50 ML BAG IV SCH ×2 (03:05→11:01)
[2022-05-16] MEDS: Enoxaparin 40 MG/0.4 ML SYR SUBCUT SCH (05:35)
[2022-05-16 07:07] LABS: ABS Eosinophils 0.3 10^3/ul (0-0.6); ABS Lymphocytes 1.2 10^3/ul (1.0-4.8); ABS Neutrophils 4.6 10^3/ul (1.5-7.7); Eosinophil % 4.6 %; Hematocrit 27 % (35-47); Hemoglobin 8.9 g/dL (12.0-16.0); Lymphocyte % 16.4 %; Mean Corpuscular HGB Conc 33 g/dL (31-36); Mean Corpuscular Hemoglobin 28 pg (27-31); Mean Corpuscular Volume 83 fL (80-97); Mean Platelet Volume 8.4 fL (7.4-10.4); Nucleated Red Blood Cells % 0.1; Platelet Count 177 10^3/uL (150-450); Red Blood Count 3.22 10^6 /uL (3.70-4.87); Red Cell Distribution Width 17 % (10-15); White Blood Count 7.1 10^3/uL (3.5-10.8)
[2022-05-16 07:30] LABS: Calcium 8.7 mg/dL (8.6-10.3); Potassium 3.7 mmol/L (3.5-5.0); eGFR CKD-EPI 116.3 (>60)
[2022-05-16] MEDS: Potassium Chlor 20 meq TAB.ER PO SCH (09:23)
[2022-05-16] MEDS ORDERED: Hydrocortisone 0.5% OINT 1 TUBE TOPICAL SCH (21:00)
[2022-05-17] MEDS: Enoxaparin 40 MG/0.4 ML SYR SUBCUT SCH (05:48)
[2022-05-17 07:02] LABS: ABS Eosinophils 0.4 10^3/ul (0-0.6); ABS Lymphocytes 1.1 10^3/ul (1.0-4.8); ABS Monocytes 0.7 10^3/ul (0-0.8); ABS Neutrophils 3.5 10^3/ul (1.5-7.7); Eosinophil % 6.9 %; Hematocrit 27 % (35-47); Hemoglobin 8.9 g/dL (12.0-16.0); Lymphocyte % 19.7 %; Mean Corpuscular HGB Conc 33 g/dL (31-36); Mean Corpuscular Hemoglobin 28 pg (27-31); Mean Corpuscular Volume 83 fL (80-97); Mean Platelet Volume 8.2 fL (7.4-10.4); Platelet Count 164 10^3/uL (150-450); Red Blood Count 3.24 10^6 /uL (3.70-4.87); Red Cell Distribution Width 16 % (10-15); White Blood Count 5.8 10^3/uL (3.5-10.8)
[2022-05-17] MEDS: Potassium Chlor 20 meq TAB.ER PO SCH (08:48)
[2022-05-17 09:19] LABS: Calcium 8.4 mg/dL (8.6-10.3); Potassium 3.4 mmol/L (3.5-5.0); eGFR CKD-EPI 119.3 (>60)
[2022-05-17 12:41] VITALS: BP 122/67
== END 2022-05-17 13:10 | disposition home or self-care (01) | DRG 854 ==
LOC: EDBD → EDHOLD 23:09 → ED 23:09 → SUATTDRO 05-14 01:43 → MERGE 05-14 01:43 → EDHOLD 05-14 08:05 → MEDTELE 05-14 08:13
PROVIDERS: ADMIT Student in an Organized Health Care Education/Training Program; ATTEND Internal Medicine

== ENCOUNTER 2022-06-26 15:26 | Inpatient (IN) ==
[2022-06-26] MEDS ORDERED: Lactated Ringers 1000 ml BAG 1,000 ML IV ONE ×4 (16:15→20:22)
[2022-06-26 16:40] LABS: Hematocrit 35 % (35-47); Hemoglobin 11.6 g/dL (12.0-16.0); Mean Corpuscular HGB Conc 33 g/dL (31-36); Mean Corpuscular Hemoglobin 25 pg (27-31); Mean Corpuscular Volume 76 fL (80-97); Mean Platelet Volume 7.6 fL (7.4-10.4); Platelet Count 311 10^3/uL (150-450); Red Blood Count 4.63 10^6 /uL (3.70-4.87); Red Cell Distribution Width 18 % (10-15); White Blood Count 16.8 10^3/uL (3.5-10.8)
[2022-06-26 16:49] LABS: Activated Partial Thrombo Time 31.4 seconds (26.0-38.0); INR 1.03 (0.88-1.18)
[2022-06-26 16:51] LABS: ABS Eosinophils 0.5 10^3/ul (0-0.6); ABS Lymphocytes 0.8 10^3/ul (1.0-4.8); ABS Monocytes 3.2 10^3/ul (0-0.8); ABS Neutrophils 12.3 10^3/ul (1.5-7.7); Eosinophil % 3.1 %; Lymphocyte % 4.7 %
[2022-06-26 16:59] LABS: Urine Appearance Clear; Urine Bilirubin Negative (Negative); Urine Blood 1+ (Small) (Negative); Urine Color Yellow; Urine Glucose Negative (Negative); Urine Ketones Negative (Negative); Urine Nitrite Negative (Negative); Urine Protein 1+ (30 mg/dL) (Negative); Urine Urobilinogen 0.2 (Negative) (Negative)
[2022-06-26 17:16] LABS: Urine Bacteria 1+ (Absent); Urine Red Blood Cell Trace(0-2/hpf) (Absent); Urine Squamous Epithelial Cell Present (Absent); Urine White Blood Cell 3+(>20/hpf) (Absent)
[2022-06-26 17:22] LABS: Albumin 4.8 g/dL (3.2-5.2); Globulin 2.7 g/dL (2-4); Potassium 4.3 mmol/L (3.5-5.0); Total Protein 7.5 g/dL (6.4-8.9)
[2022-06-26 17:23] LABS: Albumin/Globulin Ratio 1.8 (1-3); C Reactive Protein 104.52 mg/L (<8.01); Total Bilirubin 0.4 mg/dL (0.2-1.0)
[2022-06-26] MEDS ORDERED: Gentamicin ADULT 160 MG in NS 0.9% 100 ml BAG 100 ML IVPB ONE (18:21)
[2022-06-26 18:41] LABS: High Sensitivity Troponin 1 Hr 4 pg/mL (<15)
[2022-06-26] MEDS ORDERED: Heparin 5000 UNITS/ML 1 mL VIAL SUBCUT ONE (20:34)
[2022-06-26 20:47] LABS: Magnesium 1.7 mg/dL (1.9-2.7)
[2022-06-26] MEDS ORDERED: Magnesium Sulfate IV 3 GM in NS 0.9% 100 ml BAG 100 ML IVPB ONE (20:50)
[2022-06-26] MEDS ORDERED: Lactated Ringers 1000 ml BAG 1,000 ML IV SCH (21:00)
[2022-06-26] MEDS ORDERED: Dextrose 50% Syringe 50 ml 25 GM/50 ML SYRINGE IV PUSH PRN (21:46)
[2022-06-27] MEDS ORDERED: Vancomycin 1,000 MG in NS 0.9% 250 ml 250 ML IVPB ONE (01:07)
[2022-06-27] MEDS ORDERED: Vancomycin 1,500 MG in NS 0.9% 250 ml 250 ML IVPB ONE (02:00)
[2022-06-27] MEDS ORDERED: Vancomycin per Pharmacy 1 EA NOTE FOLLOW UP SCH (02:00)
[2022-06-27 06:25] LABS: Hematocrit 36 % (35-47); Hemoglobin 11.4 g/dL (12.0-16.0); Mean Corpuscular HGB Conc 32 g/dL (31-36); Mean Corpuscular Hemoglobin 25 pg (27-31); Mean Corpuscular Volume 79 fL (80-97); Mean Platelet Volume 7.6 fL (7.4-10.4); Platelet Count 226 10^3/uL (150-450); Red Blood Count 4.58 10^6 /uL (3.70-4.87); Red Cell Distribution Width 18 % (10-15); White Blood Count 12.2 10^3/uL (3.5-10.8)
[2022-06-27 06:26] LABS: ABS Eosinophils 0.2 10^3/ul (0-0.6); ABS Lymphocytes 1.4 10^3/ul (1.0-4.8); ABS Monocytes 3.1 10^3/ul (0-0.8); ABS Neutrophils 7.5 10^3/ul (1.5-7.7); Eosinophil % 1.7 %; Lymphocyte % 11.8 %
[2022-06-27 07:11] LABS: CO2 Carbon Dioxide 18 mmol/L (22-32); Chloride 103 mmol/L (101-111); Sodium 134 mmol/L (135-145)
[2022-06-27 07:17] LABS: Blood Urea Nitrogen 11 mg/dL (6-24); Glucose 134 mg/dL (70-100); eGFR CKD-EPI 109.6 (>60)
[2022-06-27 07:18] LABS: Anion Gap 13 mmol/L (2-11)
[2022-06-27] MEDS ORDERED: Vancomycin 1,500 MG in NS 0.9% 250 ml 250 ML IVPB SCH (10:00)
[2022-06-27 14:57] VITALS: BP 149/82
[2022-06-28] MEDS ORDERED: Vancomycin Trough Check NOTE FOLLOW UP ONE (09:30)
== END 2022-06-27 15:24 | disposition home or self-care (01) | DRG 872 ==
LOC: ED 15:26 → EDHOLD 18:49
PROVIDERS: ADMIT Internal Medicine; ATTEND Internal Medicine